=== PATIENT | female | born 1940 | race Caucasian/White ===

== ENCOUNTER 2020-05-16 18:35 | Outpatient (CLI) | payer MEDICARE, OTHER | END 2020-05-16 23:59 | disposition home or self-care (01) | LOC: LAB.S 18:35 | PROVIDERS: ATTEND Emergency Medicine | DX: L03.115 Cellulitis of right lower limb (principal) | CPT/HCPCS: 87070; 87205 ==

== ENCOUNTER 2020-05-22 17:45 | Outpatient (CLI) | payer MEDICARE, OTHER ==
--- NOTE | 2020-05-22 18:13 | XRAY Report ---
PROCEDURE: Chest 2 View X-Ray INDICATIONS: EXERTIONAL SHORTNESS OF BREATH TECHNIQUE: 2 views of the chest. COMPARISON: None. FINDINGS: Surgical changes and devices: None. Lungs and pleura: There is pulmonary edema. Small bilateral pleural effusions are present. Mediastinum: Mediastinal contours are normal. Heart size is enlarged. Bones and chest wall: No suspicious bony abnormalities. Soft tissues appear unremarkable. IMPRESSION: 1. Pulmonary edema with small pleural effusions and cardiomegaly compatible with congestive heart tajclaudio villanueva. Reviewed by: Chris Lebron MD on 05/22/2020 6:12 PM PST Approved by: Chris Lebron MD on 05/22/2020 6:12 PM [facility] Station ID: [id number]
== END 2020-05-22 17:46 | disposition home or self-care (01) ==
LOC: DI.S 17:45
PROVIDERS: ATTEND Physician Assistant Medical
DX: R06.02 Shortness of breath (principal); J81.1 Chronic pulmonary edema; J90 Pleural effusion, not elsewhere classified

== ENCOUNTER 2020-05-22 17:52 | Outpatient (CLI) | payer MEDICARE, OTHER | END 2020-05-22 23:59 | disposition home or self-care (01) | LOC: LAB.S 17:52 | PROVIDERS: ATTEND Physician Assistant Medical | DX: R06.02 Shortness of breath (principal); R05 Cough; Z20.822 Contact with and (suspected) exposure to COVID-19 ==

== ENCOUNTER 2020-05-22 19:27 | Inpatient (IN) | payer MEDICARE, OTHER ==
--- NOTE | 2020-05-22 20:47 | ED Physician Documentation ---
PD HPI DYSPNEA - Stated complaint Stated Complaint: CHF - Chief complaint Chief Complaint: Cardiac - History obtained from History obtained from: Patient - History of Present Illness Timing - onset: How many days ago (several days of increasing dyspnea with activity and lying down. Has prior leg edema that she says is a bit less than usual. Has been taking her usual medications.) Timing - onset during: Light activity Timing - duration: Days Timing - details: Gradual onset, Still present Inciting event(s): No: Out of meds Improved by: Rest, Sitting up Worsened by: Exertion, Laying flat Associated symptoms: Cough (mild). No: Fever, Wheezing Similar symptoms before: Has not had sx before Recently seen: Clinic (went to Walk In clinic today and referred to ER for CHF. Pt states has not had CHF in the past, but is on diuretic as well as recent Dx of ME/cardiac stent and prior HTN.), Admitted (She states she was in hospital end March through end Apr for CVA, and also with ME and had stent placed, and developed pneumonia. She was discharged end Apr and then moved here just beginning of May to live near her sister. Has not gotten new provider on [facility] as yet.) Review of Systems Constitutional: denies: Fever Nose: denies: Rhinorrhea / runny nose, Congestion Throat: denies: Sore throat Cardiac: denies: Chest pain / pressure Respiratory: reports: Cough. denies: Dyspnea, Hemoptysis, Wheezing GI: denies: Abdominal Pain, Nausea, Vomiting, Diarrhea, Bloody / black stool : denies: Dysuria, Frequency Musculoskeletal: reports: Extremity swelling (chronic both legs) Neurologic: reports: Generalized weakness. denies: Focal weakness, Numbness, Near syncope PD PAST MEDICAL HISTORY - Past Medical History Past Medical History: Yes Cardiovascular: Congestive heart failure, ME, Atrial fibrillation Neuro: CVA Endocrine/Autoimmune: Type 2 diabetes - Allergies Allergies/Adverse Reactions: Allergies Allergy/AdvReac Type Severity Reaction Status Date / Time amoxicillin [From Augmentin] Allergy Hives Verified 05/22/20 19:40 clavulanic acid Allergy Hives Verified 05/22/20 19:40 [From Augmentin] colesevelam Allergy Edema Verified 05/22/20 19:40 Drwyiwd-Jxr-Cnm Reductase Allergy Edema Verified 05/22/20 19:40 Inhibitor - Living Situation Living Situation: reports: Alone Living Arrangement: reports: Assisted living (move to [facility] and living at [facility] just the past 2 weeks. ) - Social History Does the pt smoke?: Yes Smoking Status: Former smoker Does the pt drink ETOH?: No Does the pt have substance abuse?: No - Immunizations Immunizations are current?: Yes PD ED PE NORMAL - Vitals Vital signs reviewed: Yes - General General: Alert and oriented X 3, No acute distress, Well developed/nourished - HEENT HEENT: Pharynx benign - Neck Neck: Supple, no meningeal sign, No adenopathy - Cardiac Cardiac: RRR, No murmur - Respiratory Respiratory: No: Clear bilaterally (crackles bottom third both lungs. No coarse sounds. ) - Abdomen Abdomen: Soft, Non tender, Non distended - Female Female : Deferred - Rectal Rectal: Deferred - Back Back: No CVA TTP - Derm Derm: Normal color, Warm and dry - Extremities Extremities: No deformity, No tenderness to palpate, Normal ROM s pain, No calf tenderness / cord, Other (1+ edema in both legs up to knees. ) Results - Vitals Vitals: Vital Signs - 24 hr 05/22/20 05/22/20 05/22/20 19:31 20:04 20:15 Temperature 36.4 C L 36.5 C Heart Rate 73 73 70 Respiratory 16 16 15 Rate Blood Pressure 121/50 L 121/50 L 137/69 H O2 Saturation 94 91 L 97 05/22/20 05/22/20 22:00 23:00 Temperature Heart Rate 72 72 Respiratory 17 21 Rate Blood Pressure 131/64 H 121/69 O2 Saturation 95 95 Oxygen O2 Source Room air - EKG (time done) 19:47 Rate: Rate (enter#) (66) Rhythm: Atrial fibrillation [place]: Normal QRS: Normal Ischemia: Normal ST segments. No: ST elevation c/w ischemia, ST depression - Labs Labs: Laboratory Tests 05/22/20 05/22/20 05/22/20 20:45 20:45 20:45 WBC 7.9 RBC 4.31 Hgb 12.2 Hct 37.4 MCV 86.8 MCH 28.3 MCHC 32.6 RDW 13.8 Plt Count 287 MPV 9.2 Neut # (Auto) 6.0 Lymph # (Auto) 0.8 L [place] # (Auto) 0.7 Eos # (Auto) 0.3 Baso # (Auto) 0.1 Absolute Nucleated RBC 0.00 Nucleated RBC % 0.0 Sodium 136 Potassium 3.7 Chloride 99 L Carbon Dioxide 24 Anion Gap 13.0 BUN 14 Creatinine 1.2 H Estimated GFR (MDRD) 43 L Glucose 115 H Calcium 9.1 Magnesium 2.0 Total Bilirubin 0.8 AST 46 H ALT 64 H Alkaline Phosphatase 71 Troponin I High Sens 8.9 B-Natriuretic Peptide Total Protein 7.4 Albumin 3.7 Globulin 3.7 Albumin/Globulin Ratio 1.0 Lipase 176 H TSH Nasal Adenovirus (PCR) Nasal B. parapertussis DNA (PCR) Nasal Coronavir 229E PCR Nasal Coronavir HKU1 PCR Nasal Coronavir NL63 PCR Nasal Coronavir OC43 PCR Nasal Enterovir/Rhinovir PCR Nasal Influenza B PCR Nasal Influenza A PCR Nasal Parainfluen 1 PCR Nasal Parainfluen 2 PCR Nasal Parainfluen 3 PCR Nasal Parainfluen 4 PCR Nasal RSV (PCR) Nasal B.pertussis DNA PCR Nasal C.pneumoniae (PCR) [place] Human Metapneumo PCR Nasal M.pneumoniae (PCR) Nasal SARS-CoV-2 (PCR) 05/22/20 05/22/20 05/22/20 20:45 20:45 21:37 WBC RBC Hgb Hct MCV MCH MCHC RDW Plt Count MPV Neut # (Auto) Lymph # (Auto) [place] # (Auto) Eos # (Auto) Baso # (Auto) Absolute Nucleated RBC Nucleated RBC % Sodium Potassium Chloride Carbon Dioxide Anion Gap BUN Creatinine Estimated GFR (MDRD) Glucose Calcium Magnesium Total Bilirubin AST ALT Alkaline Phosphatase Troponin I High Sens B-Natriuretic Peptide 295 H Total Protein Albumin Globulin Albumin/Globulin Ratio Lipase TSH 3.04 Nasal Adenovirus (PCR) NOT DETECTED Nasal B. parapertussis DNA (PCR) NOT DETECTED Nasal Coronavir 229E PCR NOT DETECTED Nasal Coronavir HKU1 PCR NOT DETECTED Nasal Coronavir NL63 PCR NOT DETECTED Nasal Coronavir OC43 PCR NOT DETECTED Nasal Enterovir/Rhinovir PCR NOT DETECTED Nasal Influenza B PCR NOT DETECTED Nasal Influenza A PCR NOT DETECTED Nasal Parainfluen 1 PCR NOT DETECTED Nasal Parainfluen 2 PCR NOT DETECTED Nasal Parainfluen 3 PCR NOT DETECTED Nasal Parainfluen 4 PCR NOT DETECTED Nasal RSV (PCR) NOT DETECTED Nasal B.pertussis DNA PCR NOT DETECTED Nasal C.pneumoniae (PCR) NOT DETECTED [place] Human Metapneumo PCR NOT DETECTED Nasal M.pneumoniae (PCR) NOT DETECTED Nasal SARS-CoV-2 (PCR) NOT DETECTED - Rads (name of study) chest xray Radiology: Prelim report reviewed (increased interstitial markings c/w pulmonary edema), See rad report PD MEDICAL DECISION MAKING - ED course Complexity details: reviewed results, re-evaluated patient (Given IV Lasix without much urine out at time yet she does take torsemide normally so we can try a different diuretic. We will give some Bumex instead.), considered differential, d/w patient ED course: She denies any prior history of CHF but records from [place] where she was hospitalized to make reference to diastolic CHF. She has recent ME with stent placement and a history of atrial fib and is on a diuretic. CHF exacerbation is not too unusual in that scenario. Recent moving may also have changed her diet and such. She will need further diuresing and further evaluation. She is not having any labored breathing at this time and her oxygenation is adequate. Blood pressures not significantly elevated so no afterload reduction was done. Departure - Departure Disposition: ED Place in Observation Clinical Impression: Dyspnea Qualifiers: Dyspnea type: dyspnea on exertion Qualified Code(s): R06.00 - Dyspnea, unspecified Congestive heart failure Qualifiers: Heart failure type: unspecified Heart failure chronicity: acute on chronic Qualified Code(s): I50.9 - Heart failure, unspecified Condition: Stable Record reviewed to determine appropriate education?: Yes Discharge Date/Time: 05/23/20 00:31
[2020-05-22 20:56] LABS: BASOPHILS # (AUTO) 0.1 10^3/uL (0.0-0.1); BASOPHILS % (AUTO) 0.6 %; EOSINOPHILS # (AUTO) 0.3 10^3/uL (0.0-0.7); EOSINOPHILS % (AUTO) 3.7 %; HGB - HEMOGLOBIN 12.2 g/dL (12.0-16.0); LYMPHOCYTES # (AUTO) 0.8 10^3/uL (1.5-3.5); LYMPHOCYTES % (AUTO) 10.4 %; MEAN CORPUSCULAR HEMOGLOBIN 28.3 pg (27.0-31.0); MEAN CORPUSCULAR HGB CONC 32.6 g/dL (32.0-36.0); MEAN CORPUSCULAR VOLUME 86.8 fL (81.0-99.0); MEAN PLATELET VOLUME 9.2 fL (7.9-10.8); MONOCYTES # (AUTO) 0.7 10^3/uL (0.0-1.0); MONOCYTES % (AUTO) 9.1 %; NEUTROPHILS % (AUTO) 75.8 %; PLT - PLATELET COUNT 287 10^3/uL (130-450); RED BLOOD COUNT 4.31 10^6/uL (4.20-5.40); RED CELL DISTRIBUTION WIDTH 13.8 % (12.0-15.0); WHITE BLOOD COUNT 7.9 x10^3/uL (4.8-10.8)
[2020-05-22] MEDS ORDERED: FUROSEMIDE 40 MG/4 ML VIAL IVP STA (21:08)
[2020-05-22 21:09] LABS: ALBUMIN 3.7 g/dL (3.2-5.5); BILIRUBIN,TOTAL 0.8 mg/dL (0.2-1.0); CALCIUM 9.1 mg/dL (8.5-10.3); CREATININE 1.2 mg/dL (0.4-1.0); TOTAL PROTEIN 7.4 g/dL (6.7-8.2)
[2020-05-22] MEDS ORDERED: BUMETANIDE 1 MG/4 ML VIAL IVP STA (22:10)
--- NOTE | 2020-05-22 22:15 | XRAY Report ---
PROCEDURE: Chest 1 View X-Ray INDICATIONS: dyspnea TECHNIQUE: One view of the chest was acquired. COMPARISON: 05/22/2020 FINDINGS: Surgical changes and devices: None. Lungs and pleura: There is increased pulmonary edema. No focal consolidation. No pleural effusions o r pneumothorax. Mediastinum: Mediastinal contours appear unchanged. Heart size is enlarged. Bones and chest wall: No suspicious bony lesions. Overlying soft tissues appear unremarkable. IMPRESSION: 1. Increased pulmonary edema compared to the recent prior study. Reviewed by: Chris Lebron MD on 05/22/2020 10:13 PM PST Approved by: Chris Lebron MD on 05/22/2020 10:13 PM [facility] Station ID: [id number]
[2020-05-22 22:39] LABS: C. PNEUMONIAE- RESP PCR PANEL NOT DETECTED
[2020-05-23] MEDS ORDERED: ONDANSETRON 4 MG/2 ML VIAL IVP PRN (00:08)
[2020-05-23] MEDS ORDERED: SODIUM CHLORIDE FLUSH 0.9% 10 ML SYRINGE IVP PRN (00:08)
[2020-05-23] MEDS ORDERED: ACETAMINOPHEN 325 MG TABLET PO PRN (00:08)
[2020-05-23] MEDS: INSULIN GLARGINE 300 UNIT/3 ML PEN SUBQ SCH ×3 (01:21→22:32)
[2020-05-23] MEDS: SODIUM CHLORIDE FLUSH 0.9% 10 ML SYRINGE IVP SCH ×3 (01:26→20:06)
[2020-05-23 06:22] LABS: CALCIUM 8.2 mg/dL (8.5-10.3); CREATININE 1.1 mg/dL (0.4-1.0); MAGNESIUM 1.9 mg/dL (1.7-2.8)
[2020-05-23] MEDS: FUROSEMIDE 40 MG/4 ML VIAL IVP SCH ×2 (06:33→14:05)
--- NOTE | 2020-05-23 07:28 | HISTORY & PHYSICAL EXAMINATION ---
DATE OF SERVICE: 05/22/2020 Physician: Kristi Michele MD PRIMARY CARE: No PCP. HISTORY OF PRESENT ILLNESS: This is an 79-year-old white female who moved from [place] to [facility] several weeks ago and has no established PCP. She has a history of diastolic heart failure, hypertension, diabetes mellitus on Insulin, atrial fib on Eliquis. She had a stroke and required hospitalization in [place] from March 2020 through May of this year and had intercurrent coronary disease evaluated and needed a coronary stent, and she also had a pneumonia. She moved from [place] to here to be closer to her sister. Over the last two days, she has noticed orthopnea, increased dyspnea on exertion and worsening of leg edema. She went to a walk-in clinic because of these complaints and was found to have a saturation of 89% on room air and was sent to the emergency room. In the ER, her chest x-ray shows pulmonary edema, and she is dyspneic and has received two doses of IV diuretics and has had no urine output of significance yet, is still dyspneic. She is being placed in Observation status for management of [id number]-zh-ycqmdnu diastolic heart failure. PAST MEDICAL HISTORY 1. Diastolic heart failure. 2. Hypertension. 3. Diabetes. 4. Stroke. 5. Chronic atrial fibrillation, on Eliquis. ALLERGIES 1. AMOXICILLIN. 2. CLAVULANIC ACID. 3. COLESEVELAM. 4. STATINS. MEDICATIONS 1. Eliquis. 2. Torsemide 3. Diltiazem. 4. Insulin. 5. Avapro. 6. Baby aspirin daily. 7. Plavix. FAMILY HISTORY: Noncontributory. SOCIAL HISTORY: As described in paragraph 1 about moving here from [place]. She is not a smoker, does not have alcohol abuse history or illicit drug use history. REVIEW OF SYSTEMS: There has been no cough, fever, GI complaints, palpitations, or syncope. A comprehensive review of systems was performed and the pertinent positives are listed, the rest are negative. PHYSICAL EXAMINATION GENERAL: The patient is morbidly obese with large, pendulous breasts, sitting in bed, with head of bed elevated, she has mild respiratory distress with speaking. VITAL SIGNS: Blood pressure 131/64, heart rate 72 in atrial fibrillation, room air saturation 91%, and then increased to 95% on supplemental oxygen. She is afebrile. HEENT: Unremarkable. NECK: No JVD but obese neck. CHEST: Possibly fine crackles at the bases. HEART: Irregular. No murmurs are audible. ABDOMEN: Soft, obese, nontender. EXTREMITIES: 1+ pedal edema with venous stasis changes. No clubbing or cyanosis. NEUROLOGIC: Grossly intact. LABORATORY DATA: Normal electrolytes. BUN is 14, creatinine 1.2. There are no old labs for comparison. Magnesium 2.0. AST 46, ALT elevated at 64. Troponin- hs is normal at 8.9. BNP mildly up at 295. Lipase very high at 176. TSH normal at 3.04. CBC normal. BioFire negative for COVID. IMAGING: Chest x-ray: Pulmonary edema. EKG: Atrial fibrillation, rate of 66, QS waves are present in leads V1-V3, and there are inferolateral T-wave abnormalities in leads III and aVL. There is no old EKG available for comparison. IMPRESSION/DIAGNOSES: 1. Yktql-hu-cjiiaot diastolic heart failure. 2. Chronic kidney injury. The records from her Mar 2020-May 2020 hospitalization show a baseline creat of 1.5. 3. Elevated liver function tests, probable liver congestion. 4. Elevated lipase, which may be a phase reactant; however, with his very high level, there is concern of pancreatic inflammation. 5. Chronic atrial fibrillation. 6. Diabetes mellitus, on Insulin. 7. History of coronary artery disease, with stenting just done approximately 4- 6 weeks ago. She is on aspirin, Plavix plus Eliquis. 8. Hypertension. 9. PVD. Her records from her Mar 2020-May 2020 hospitalization describe that has carotid stenoses. 10. Aortic stenosis. This is also from records. Her heart sounds are so distant, due to large breasts, that no murmur is heard. 11. History of CVA. She describes slight right foot weakness and right 4th and 5th finger numbness are still present. PLAN: Place the patient in Observation status on telemetry. Start oxygen as needed. Continue with her medications for rate control and anticoagulation. Start IV b.i.d. Lasix, follow I's and O's, daily weights, electrolytes and magnesium. Start a diabetic diet and (a slightly lower dose of) insulin long- acting and sliding scale for correction. Check her A1c. Continue with her aspirin and Plavix for her coronary disease with recent stenting history and her meds for blood pressure control. Cycle troponins. Obtain an Echo to establish LV and RV contractility and PA pressure. If there has been no urine output we will check for urinary retention and either order straight catheterization or Sagastume placement. DEEP VENOUS THROMBOSIS PROPHYLAXIS: SCDs. CODE STATUS: FULL CODE. ATTESTATION: Patient is expected to be discharged or transferred to another facility within 96 hours: Yes. TD: 05/23/2020 00:03 MTDRo
[2020-05-23] MEDS: INSULIN ASPART 300 UNIT/3 ML PEN SUBQ SCH ×4 (09:28→22:32)
[2020-05-23] MEDS: CLOPIDOGREL 75 MG TABLET PO SCH (09:30)
[2020-05-23] MEDS: ASPIRIN EC 81 MG TABLET PO SCH (09:30)
[2020-05-23] MEDS: APIXABAN 5 MG TABLET PO SCH ×2 (09:30→22:28)
[2020-05-23] MEDS: METOPROLOL TARTRATE 25 MG TABLET PO SCH ×2 (09:30→22:28)
[2020-05-23] MEDS: amLODIPine 5 MG TABLET PO SCH (09:30)
[2020-05-23] MEDS: FAMOTIDINE 20 MG TABLET PO SCH ×2 (09:30→22:28)
--- NOTE | 2020-05-23 13:14 | PROVIDER PROGRESS NOTE ---
Subjective - Prog Note Date Prog Note Date: 05/23/20 - Subjective Subjective: She feels improved but not back to her baseline. Still has some dyspnea but this is better. Denies any worsening lower extremity edema. Denies chest pain. Current Medications - Current Medications Current Medications: Active Medications Acetaminophen (Acetaminophen 325 Mg Tablet) 650 mg PO Q4HR PRN PRN Reason: Pain 1 to 4 Amlodipine Besylate (Amlodipine 5 Mg Tablet) 5 mg PO DAILY [facility] Last Admin: 05/23/20 09:30 Dose: 5 mg Documented by: Apixaban (Apixaban 5 Mg Tablet) 5 mg PO BID [facility] Last Admin: 05/23/20 09:30 Dose: 5 mg Documented by: Aspirin (Aspirin Ec 81 Mg Tablet) 81 mg PO DAILY [facility] Last Admin: 05/23/20 09:30 Dose: 81 mg Documented by: Clopidogrel Bisulfate (Clopidogrel 75 Mg Tablet) 75 mg PO DAILY [facility] Last Admin: 05/23/20 09:30 Dose: 75 mg Documented by: Famotidine (Famotidine 20 Mg Tablet) 20 mg PO BID [facility] Last Admin: 05/23/20 09:30 Dose: 20 mg Documented by: Furosemide (Furosemide 40 Mg/4 Ml Vial) 40 mg IVP BIDDIURETIC [facility] Last Admin: 05/23/20 14:05 Dose: 40 mg Documented by: Insulin Aspart (Insulin Aspart 300 Unit/3 Ml Pen) 1 - 5 unit SUBQ 0800,1200 ,1700,2100 [facility]; Protocol Last Admin: 05/23/20 12:23 Dose: 3 unit Documented by: Insulin Glargine (Insulin Glargine 300 Unit/3 Ml Pen) 5 unit SUBQ BID [facility] Last Admin: 05/23/20 09:28 Dose: 5 unit Documented by: Metoprolol Tartrate (Metoprolol Tartrate 25 Mg Tablet) 12.5 mg PO BID [facility] Last Admin: 05/23/20 09:30 Dose: 12.5 mg Documented by: Ondansetron HCl (Ondansetron 4 Mg/2 Ml Vial) 4 mg IVP Q6HR PRN PRN Reason: Nausea / Vomiting Sodium Chloride (Sodium Chloride Flush 0.9% 10 Ml Syringe) 10 ml IVP PRN PRN PRN Reason: NEEDED PER PROVIDER ORDERS Sodium Chloride (Sodium Chloride Flush 0.9% 10 Ml Syringe) 10 ml IVP 0100,0900,1700 [facility] Last Admin: 05/23/20 09:31 Dose: 10 ml Documented by: Objective - Vital Signs/Intake & Output Reviewed Vital Signs: Yes Vital Signs: Vital Signs x48h Temp Pulse Resp BP BP Pulse Ox 05/23/20 12:17 36.9 C 75 18 144/74 H 95 05/23/20 09:30 146/65 H 05/23/20 08:00 37.1 C 84 20 141/65 H 93 Intake & Output: Intake & Output 05/20/20 05/21/20 05/22/20 05/23/20 23:59 23:59 23:59 23:59 Intake Total 600 Output Total 650 1850 Balance -650 -1250 - Objective General Appearance: positive: No acute distress, Alert Eyes Bilateral: positive: Normal inspection, Conjunctivae nml ENT: positive: ENT inspection nml Neck: positive: Nml inspection Respiratory: positive: No respiratory distress, Other (Diminished in bases.). negative: Wheezes, Rales Cardiovascular: positive: Irregularly irregular, Systolic murmur. negative: Tachycardia Abdomen: positive: Non-tender, No distention. negative: Tenderness Skin: positive: Warm, Dry Extremities: positive: Pedal edema (Trace edema in bilateral lower extremities.) Neurologic/Psychiatric: negative: Disoriented to person, Disoriented to place - Lab Results Fish Bones: 05/22/20 20:45 05/23/20 06:05 Other Labs: Lab Results x24hrs 05/23/20 05/23/20 05/23/20 Range/Units 12:13 08:06 06:05 WBC (4.8-10.8) x10^3/uL RBC (4.20-5.40) 10^6/uL Hgb (12.0-16.0) g/dL Hct (37.0-47.0) % MCV (81.0-99.0) fL MCH (27.0-31.0) pg MCHC (32.0-36.0) g/dL RDW (12.0-15.0) % Plt Count (130-450) 10^3/uL MPV (7.9-10.8) fL Neut # (Auto) (1.5-6.6) 10^3/uL Lymph # (Auto) (1.5-3.5) 10^3/uL [place] # (Auto) (0.0-1.0) 10^3/uL Eos # (Auto) (0.0-0.7) 10^3/uL Baso # (Auto) (0.0-0.1) 10^3/uL Absolute Nucleated RBC x10^3/uL Nucleated RBC % /100WBC Sodium (135-145) mmol/L Potassium (3.5-5.0) mmol/L Chloride (101-111) mmol/L Carbon Dioxide (21-32) mmol/L Anion Gap (6-13) BUN (6-20) mg/dL Creatinine (0.4-1.0) mg/dL Estimated GFR (MDRD) (>89) Glucose (70-100) mg/dL POC Whole Bld Glucose 272 H 157 H (70 - 100) mg/dL Calcium (8.5-10.3) mg/dL Magnesium (1.7-2.8) mg/dL Total Bilirubin (0.2-1.0) mg/dL AST (10-42) IU/L ALT (10-60) IU/L Alkaline Phosphatase (42-121) IU/L Troponin I High Sens (2.3-14.8) ng/L B-Natriuretic Peptide 248 H (5-100) pg/mL Total Protein (6.7-8.2) g/dL Albumin (3.2-5.5) g/dL Globulin (2.1-4.2) g/dL Albumin/Globulin Ratio (1.0-2.2) Lipase (22-51) U/L TSH (0.34-5.60) uIU/mL Nasal Adenovirus (PCR) Nasal B. parapertussis DNA (PCR) Nasal Coronavir 229E PCR Nasal Coronavir HKU1 PCR Nasal Coronavir NL63 PCR Nasal Coronavir OC43 PCR Nasal Enterovir/Rhinovir PCR Nasal Influenza B PCR Nasal Influenza A PCR Nasal Parainfluen 1 PCR Nasal Parainfluen 2 PCR Nasal Parainfluen 3 PCR Nasal Parainfluen 4 PCR Nasal RSV (PCR) Nasal B.pertussis DNA PCR Nasal C.pneumoniae (PCR) [place] Human Metapneumo PCR Nasal M.pneumoniae (PCR) Nasal SARS-CoV-2 (PCR) 05/23/20 05/22/2021 Range/Units 06:05 21:37 20:45 WBC (4.8-10.8) x10^3/uL RBC (4.20-5.40) 10^6/uL Hgb (12.0-16.0) g/dL Hct (37.0-47.0) % MCV (81.0-99.0) fL MCH (27.0-31.0) pg MCHC (32.0-36.0) g/dL RDW (12.0-15.0) % Plt Count (130-450) 10^3/uL MPV (7.9-10.8) fL Neut # (Auto) (1.5-6.6) 10^3/uL Lymph # (Auto) (1.5-3.5) 10^3/uL [place] # (Auto) (0.0-1.0) 10^3/uL Eos # (Auto) (0.0-0.7) 10^3/uL Baso # (Auto) (0.0-0.1) 10^3/uL Absolute Nucleated RBC x10^3/uL Nucleated RBC % /100WBC Sodium 134 L (135-145) mmol/L Potassium 3.6 (3.5-5.0) mmol/L Chloride 100 L (101-111) mmol/L Carbon Dioxide 22 (21-32) mmol/L Anion Gap 12.0 (6-13) BUN 13 (6-20) mg/dL Creatinine 1.1 H (0.4-1.0) mg/dL Estimated GFR (MDRD) 48 L (>89) Glucose 159 H (70-100) mg/dL POC Whole Bld Glucose (70 - 100) mg/dL Calcium 8.2 L (8.5-10.3) mg/dL Magnesium 1.9 (1.7-2.8) mg/dL Total Bilirubin (0.2-1.0) mg/dL AST (10-42) IU/L ALT (10-60) IU/L Alkaline Phosphatase (42-121) IU/L Troponin I High Sens (2.3-14.8) ng/L B-Natriuretic Peptide (5-100) pg/mL Total Protein (6.7-8.2) g/dL Albumin (3.2-5.5) g/dL Globulin (2.1-4.2) g/dL Albumin/Globulin Ratio (1.0-2.2) Lipase (22-51) U/L TSH 3.04 (0.34-5.60) uIU/mL Nasal Adenovirus (PCR) NOT DETECTED Nasal B. parapertussis DNA (PCR) NOT DETECTED Nasal Coronavir 229E PCR NOT DETECTED Nasal Coronavir HKU1 PCR NOT DETECTED Nasal Coronavir NL63 PCR NOT DETECTED Nasal Coronavir OC43 PCR NOT DETECTED Nasal Enterovir/Rhinovir PCR NOT DETECTED Nasal Influenza B PCR NOT DETECTED Nasal Influenza A PCR NOT DETECTED Nasal Parainfluen 1 PCR NOT DETECTED Nasal Parainfluen 2 PCR NOT DETECTED Nasal Parainfluen 3 PCR NOT DETECTED Nasal Parainfluen 4 PCR NOT DETECTED Nasal RSV (PCR) NOT DETECTED Nasal B.pertussis DNA PCR NOT DETECTED Nasal C.pneumoniae (PCR) NOT DETECTED [place] Human Metapneumo PCR NOT DETECTED Nasal M.pneumoniae (PCR) NOT DETECTED Nasal SARS-CoV-2 (PCR) NOT DETECTED 05/22/20 05/22/20 05/22/20 Range/Units 20:45 20:45 20:45 WBC (4.8-10.8) x10^3/uL RBC (4.20-5.40) 10^6/uL Hgb (12.0-16.0) g/dL Hct (37.0-47.0) % MCV (81.0-99.0) fL MCH (27.0-31.0) pg MCHC (32.0-36.0) g/dL RDW (12.0-15.0) % Plt Count (130-450) 10^3/uL MPV (7.9-10.8) fL Neut # (Auto) (1.5-6.6) 10^3/uL Lymph # (Auto) (1.5-3.5) 10^3/uL [place] # (Auto) (0.0-1.0) 10^3/uL Eos # (Auto) (0.0-0.7) 10^3/uL Baso # (Auto) (0.0-0.1) 10^3/uL Absolute Nucleated RBC x10^3/uL Nucleated RBC % /100WBC Sodium 136 (135-145) mmol/L Potassium 3.7 (3.5-5.0) mmol/L Chloride 99 L (101-111) mmol/L Carbon Dioxide 24 (21-32) mmol/L Anion Gap 13.0 (6-13) BUN 14 (6-20) mg/dL Creatinine 1.2 H (0.4-1.0) mg/dL Estimated GFR (MDRD) 43 L (>89) Glucose 115 H (70-100) mg/dL POC Whole Bld Glucose (70 - 100) mg/dL Calcium 9.1 (8.5-10.3) mg/dL Magnesium 2.0 (1.7-2.8) mg/dL Total Bilirubin 0.8 (0.2-1.0) mg/dL AST 46 H (10-42) IU/L ALT 64 H (10-60) IU/L Alkaline Phosphatase 71 (42-121) IU/L Troponin I High Sens 8.9 (2.3-14.8) ng/L B-Natriuretic Peptide 295 H (5-100) pg/mL Total Protein 7.4 (6.7-8.2) g/dL Albumin 3.7 (3.2-5.5) g/dL Globulin 3.7 (2.1-4.2) g/dL Albumin/Globulin Ratio 1.0 (1.0-2.2) Lipase 176 H (22-51) U/L TSH (0.34-5.60) uIU/mL Nasal Adenovirus (PCR) Nasal B. parapertussis DNA (PCR) Nasal Coronavir 229E PCR Nasal Coronavir HKU1 PCR Nasal Coronavir NL63 PCR Nasal Coronavir OC43 PCR Nasal Enterovir/Rhinovir PCR Nasal Influenza B PCR Nasal Influenza A PCR Nasal Parainfluen 1 PCR Nasal Parainfluen 2 PCR Nasal Parainfluen 3 PCR Nasal Parainfluen 4 PCR Nasal RSV (PCR) Nasal B.pertussis DNA PCR Nasal C.pneumoniae (PCR) [place] Human Metapneumo PCR Nasal M.pneumoniae (PCR) Nasal SARS-CoV-2 (PCR) 05/22/20 Range/Units 20:45 WBC 7.9 (4.8-10.8) x10^3/uL RBC 4.31 (4.20-5.40) 10^6/uL Hgb 12.2 (12.0-16.0) g/dL Hct 37.4 (37.0-47.0) % MCV 86.8 (81.0-99.0) fL MCH 28.3 (27.0-31.0) pg MCHC 32.6 (32.0-36.0) g/dL RDW 13.8 (12.0-15.0) % Plt Count 287 (130-450) 10^3/uL MPV 9.2 (7.9-10.8) fL Neut # (Auto) 6.0 (1.5-6.6) 10^3/uL Lymph # (Auto) 0.8 L (1.5-3.5) 10^3/uL [place] # (Auto) 0.7 (0.0-1.0) 10^3/uL Eos # (Auto) 0.3 (0.0-0.7) 10^3/uL Baso # (Auto) 0.1 (0.0-0.1) 10^3/uL Absolute Nucleated RBC 0.00 x10^3/uL Nucleated RBC % 0.0 /100WBC Sodium (135-145) mmol/L Potassium (3.5-5.0) mmol/L Chloride (101-111) mmol/L Carbon Dioxide (21-32) mmol/L Anion Gap (6-13) BUN (6-20) mg/dL Creatinine (0.4-1.0) mg/dL Estimated GFR (MDRD) (>89) Glucose (70-100) mg/dL POC Whole Bld Glucose (70 - 100) mg/dL Calcium (8.5-10.3) mg/dL Magnesium (1.7-2.8) mg/dL Total Bilirubin (0.2-1.0) mg/dL AST (10-42) IU/L ALT (10-60) IU/L Alkaline Phosphatase (42-121) IU/L Troponin I High Sens (2.3-14.8) ng/L B-Natriuretic Peptide (5-100) pg/mL Total Protein (6.7-8.2) g/dL Albumin (3.2-5.5) g/dL Globulin (2.1-4.2) g/dL Albumin/Globulin Ratio (1.0-2.2) Lipase (22-51) U/L TSH (0.34-5.60) uIU/mL Nasal Adenovirus (PCR) Nasal B. parapertussis DNA (PCR) Nasal Coronavir 229E PCR Nasal Coronavir HKU1 PCR Nasal Coronavir NL63 PCR Nasal Coronavir OC43 PCR Nasal Enterovir/Rhinovir PCR Nasal Influenza B PCR Nasal Influenza A PCR Nasal Parainfluen 1 PCR Nasal Parainfluen 2 PCR Nasal Parainfluen 3 PCR Nasal Parainfluen 4 PCR Nasal RSV (PCR) Nasal B.pertussis DNA PCR Nasal C.pneumoniae (PCR) [place] Human Metapneumo PCR Nasal M.pneumoniae (PCR) Nasal SARS-CoV-2 (PCR) ABX Reporting Has patient been on IV antibiotics over the past 48 hours?: No Assessment/Plan - Problem List (1) Acute on chronic diastolic heart failure Impression: This is improved. She still has some lower extremity edema but she is sa turating well on room air and feels improved. BNP is slightly decreased. We will continue with IV diuresis for 1 more day and transition to oral diuretics tomorrow. Continue with low-sodium diet. She likely be able to be discharged home tomorrow on oral diuretics. We will follow up the echocardiogram that was obtained today. Daily weights. (2) Chronic a-fib Impression: She is rate controlled. We will continue Eliquis and metoprolol. (3) Insulin dependent diabetes mellitus Impression: Her blood glucose is stable in the 160's. Her A1c was 5.5%. Continue carb controlled diet and current insulin regimen. (4) History of CVA with residual deficit Impression: She has history of stroke with residual right-sided deficits. She is on triple therapy with Eliquis, Plavix, aspirin. These will be continued. (5) Presence of stent in coronary artery in patient with coronary artery disease Impression: She has recent stenting back in April 2020. She is on triple therapy with Eliquis, aspirin, Plavix, statin which is continued. She will be following up with cardiology on outpatient basis. (6) Moderate aortic stenosis Impression: This was evident on her prior echocardiogram. She does have a murmur on exam. We will assess this stenosis on their repeat echocardiogram today. She will need outpatient follow-up with cardiology. (7) Carotid artery disease Impression: She has known right carotid artery disease. She is on Plavix, aspirin, statin. It was recommended by neurology during her recent hospitalization to follow-up with vascular on outpatient basis. She will be setting up an appointment with them. Qualifiers: Laterality: right
[2020-05-23 14:09] LABS: HEMOGLOBIN A1c% 7.5 % (4.27-6.07)
[2020-05-23] MEDS ORDERED: INSULIN ASPART 300 UNIT/3 ML PEN SUBQ SCH (17:00)
[2020-05-24] MEDS: SODIUM CHLORIDE FLUSH 0.9% 10 ML SYRINGE IVP SCH ×2 (00:18→08:58)
[2020-05-24 05:34] LABS: BASOPHILS # (AUTO) 0.1 10^3/uL (0.0-0.1); BASOPHILS % (AUTO) 0.8 %; EOSINOPHILS # (AUTO) 0.2 10^3/uL (0.0-0.7); EOSINOPHILS % (AUTO) 3.3 %; HGB - HEMOGLOBIN 10.9 g/dL (12.0-16.0); LYMPHOCYTES % (AUTO) 15.7 %; MEAN CORPUSCULAR HEMOGLOBIN 28.3 pg (27.0-31.0); MEAN CORPUSCULAR HGB CONC 32.3 g/dL (32.0-36.0); MEAN CORPUSCULAR VOLUME 87.5 fL (81.0-99.0); MEAN PLATELET VOLUME 9.8 fL (7.9-10.8); MONOCYTES # (AUTO) 0.6 10^3/uL (0.0-1.0); MONOCYTES % (AUTO) 9.8 %; NEUTROPHILS # (AUTO) 4.4 10^3/uL (1.5-6.6); NEUTROPHILS % (AUTO) 69.9 %; PLT - PLATELET COUNT 263 10^3/uL (130-450); RED BLOOD COUNT 3.85 10^6/uL (4.20-5.40); RED CELL DISTRIBUTION WIDTH 13.7 % (12.0-15.0); WHITE BLOOD COUNT 6.3 x10^3/uL (4.8-10.8)
[2020-05-24 05:41] LABS: CALCIUM 8.7 mg/dL (8.5-10.3); CREATININE 1.1 mg/dL (0.4-1.0)
[2020-05-24] MEDS: FUROSEMIDE 40 MG/4 ML VIAL IVP SCH (05:58)
[2020-05-24] MEDS: INSULIN ASPART 300 UNIT/3 ML PEN SUBQ SCH ×2 (08:55→11:52)
[2020-05-24] MEDS: APIXABAN 5 MG TABLET PO SCH (08:56)
[2020-05-24] MEDS: METOPROLOL TARTRATE 25 MG TABLET PO SCH (08:56)
[2020-05-24] MEDS: amLODIPine 5 MG TABLET PO SCH (08:56)
[2020-05-24] MEDS: FAMOTIDINE 20 MG TABLET PO SCH (08:56)
[2020-05-24] MEDS: CLOPIDOGREL 75 MG TABLET PO SCH (08:57)
[2020-05-24] MEDS: ASPIRIN EC 81 MG TABLET PO SCH (08:58)
--- NOTE | 2020-05-24 09:01 | Discharge Plan ---
Discharge Plan for SNF / [facility] - Discharge Plan And Transition Orders Problem Reviewed?: Yes Disposition: 03 SNF DC/Xfer Condition: Stable Allergies and Adverse Reactions: Allergies Allergy/AdvReac Type Severity Reaction Status Date / Time amoxicillin [From Augmentin] Allergy Hives Verified 05/22/20 19:40 clavulanic acid Allergy Hives Verified 05/22/20 19:40 [From Augmentin] colesevelam Allergy Edema Verified 05/22/20 19:40 Jonlrjo-Etm-Omo Reductase Allergy Edema Verified 05/22/20 19:40 Inhibitor Health Concerns: The patient was admitted for acute on chronic diastolic heart failure. Her BNP was only mildly elevated but her chest x-ray was consistent with pulmonary vascular congestion. He was diuresed with IV Lasix 40 mg twice daily with improvement in her respiratory status. She was never hypoxic and did not require supplemental oxygen. An echocardiogram was obtained which showed an ejection fraction of 60 to 65% without any obvious regional wall motion abnormalities. She is now stable for discharge back to [facility]. Plan of Treatment: Her blood pressure has been stable during this hospitalization and so we will discontinue her hydralazine but continue with amlodipine at a lower dose of 5 mg daily. She is on 20 mg of torsemide daily which will be continued. We will add 10 mg of torsemide in the afternoon. Continue her current dose of Lantus and glipizide as well as Lopressor. She has been on Eliquis, aspirin, clopidogrel. We will continue these on discharge but recommend that she follow-up with a six sigma black belt engineer as the aspirin can likely be discontinued but will defer to cardiology. The patient should have her weight checked daily and her primary care provider should be contacted if her weight increases by 1.5 kg. - SNF / [facility] Transition Orders Admit to (Facility): [facility] Discharge Diagnosis: Acute on chronic diastolic heart failure Chronic A. fib Insulin-dependent diabetes mellitus History of CVA with residual deficit Coronary artery disease with stent in place Moderate aortic stenosis Carotid artery disease, right Medicare Certification Statement: I certify that [facility] care is medically necessary on a continuing basis for any of the conditions for which she/he is receiving care during hospitalization. Notify PCP of admission and forward orders to primary provider for signature. Weight on admission and: Daily, Weekly Call PCP immediately if weight increases by: 1.5 kg Other Notification Orders: Call PCP immediately if patient develops dyspnea, chest pain/tightness or edema. Additional Bowel Program Orders: If no BM after 2 days, nurse may give M.O.M. 30ml PO PRN and/or ducolax Supp 1 IL and/or MIGUELITO 250mg P.O., and/or senna 1-2 tabs PO. On day 3 nurse may give repeat above order until residents constipation is resolved. Medication Orders: PLEASE REFER TO THE DISCHARGE MEDICATION LIST. Insulin Orders?: Yes - Medications New Prescriptions: Glipizide 5 mg PO BID #60 tablet Insulin Lispro 100 unit SQ ACHS #1 vial Insulin Glargine [Lantus Solostar] 14 unit SQ HS #1 pen amLODIPine [Norvasc] 5 mg PO DAILY #30 tablet Torsemide 20 mg PO DAILY #30 tablet Torsemide 10 mg PO 1400 #30 tablet Ezetimibe [Zetia] 10 mg PO QD #30 tablet - Diet Type: No added sugar Texture: Regular Liquids: Thin Follow Up: She will need to follow-up with her primary care provider in 1 week.
[2020-05-24 11:37] LABS: C. PNEUMONIAE- RESP PCR PANEL NOT DETECTED
--- NOTE | 2020-05-24 13:15 | DISCHARGE SUMMARY ---
Discharge Summary Admit Date: 05/22/20 Discharge Date: 05/24/20 Discharging Provider: Pasha Delgado Code Status: Attempt Resuscitation Condition at Discharge: Stable Discharge Disposition: SNF DC/Xfer Discharge Facility Name: [facility] - DIAGNOSES Admission Diagnoses: Acute on chronic diastolic heart failure Chronic kidney injury Elevated LFTs Elevated lipase Chronic atrial fibrillation Diabetes mellitus, on insulin History of coronary artery disease Hypertension Peripheral vascular disease Aortic stenosis History of CVA Discharge Diagnoses with Status of Each Condition: Acute on chronic diastolic heart failure - resolved. Chronic A. fib - stable. Insulin-dependent diabetes mellitus - stable. History of CVA with residual deficit - stable. Coronary artery disease with stent in place - stable. Moderate aortic stenosis - stable. Carotid artery disease, right - stable. - HPI History of Present Illness: Please refer to H&P of Dr. Michele. - HOSPITAL COURSE Hospital Course: The patient was admitted for acute on chronic diastolic heart failure. Her BNP was only mildly elevated but her chest x-ray was consistent with pulmonary vascular congestion. He was diuresed with IV Lasix 40 mg twice daily with improvement in her respiratory status. She was never hypoxic and did not require supplemental oxygen. An echocardiogram was obtained which showed an ejection fraction of 60 to 65% without any obvious regional wall motion abnormalities. She is now stable for discharge back to [facility]. She was discharged on her 20 mg of torsemide daily but we did add 10 mg in the afternoon. We discontinued her hydralazine on discharge as her blood pressure has been stable on just amlodipine. We did decrease the dose of amlodipine to 5 mg from 10 mg daily. - ALLERGIES Allergies/Adverse Reactions: Allergies Allergy/AdvReac Type Severity Reaction Status Date / Time amoxicillin [From Augmentin] Allergy Hives Verified 05/22/20 19:40 clavulanic acid Allergy Hives Verified 05/22/20 19:40 [From Augmentin] colesevelam Allergy Edema Verified 05/22/20 19:40 Finkuuq-Wme-Ghj Reductase Allergy Edema Verified 05/22/20 19:40 Inhibitor - MEDICATIONS Home Medications: Ambulatory Orders Medication Instructions Recorded Confirmed Apixaban [Eliquis] 5 mg PO BID tablet 05/24/20 Aspirin EC [Ecotrin] 81 mg PO DAILY tablet 05/24/20 Clopidogrel [Plavix] 75 mg PO DAILY tablet 05/24/20 Ezetimibe [Zetia] 10 mg PO QD #30 tablet 05/24/20 Glipizide 5 mg PO BID #60 tablet 05/24/20 Insulin Glargine [Lantus Solostar] 14 unit SQ HS #1 pen 05/24/20 Insulin Lispro 100 unit SQ ACHS #1 vial 05/24/20 Metoprolol Tartrate [Lopressor] 12.5 mg PO BID tablet 05/24/20 Torsemide 10 mg PO 1400 #30 tablet 05/24/20 Torsemide 20 mg PO DAILY #30 tablet 05/24/20 amLODIPine [Norvasc] 5 mg PO DAILY #30 tablet 05/24/20 - PHYSICAL EXAM AT DISCHARGE General Appearance: positive: No acute distress, Alert Eyes Bilateral: positive: Normal inspection, Conjunctivae nml ENT: positive: ENT inspection nml Neck: positive: Nml inspection Respiratory: positive: No respiratory distress, Other (Diminished breath sounds bilaterally.). negative: Wheezes, Rales Cardiovascular: positive: Irregularly irregular. negative: Tachycardia, Systolic murmur Abdomen: positive: Non-tender, No distention. negative: Tenderness Skin: positive: Warm, Dry Extremities: positive: Full ROM, Pedal edema (Trace edema in bilateral lower extremities.) Neurologic/Psychiatric: positive: Oriented x3. negative: Disoriented to person, Disoriented to place Physical Exam Other/Comments: Vital Signs - 24 hr 05/23/20 05/23/20 05/24/20 20:30 22:28 00:00 Temperature 36.8 C 36.9 C Heart Rate [ 64 68 Brachial] Respiratory 18 18 Rate Blood Pressure 130/56 L Blood Pressure 128/54 L 118/56 L [Left Brachial artery] O2 Saturation 94 95 05/24/20 05/24/20 08:00 16:00 Temperature 36.6 C 36.2 C L Heart Rate [ 66 66 Brachial] Respiratory 20 18 Rate Blood Pressure Blood Pressure 139/65 H 154/67 H [Left Brachial artery] O2 Saturation 95 97 Oxygen O2 Source Room air - LABS Result Diagrams: 05/24/20 03:58 05/24/20 03:58 Other Lab Results: Laboratory Results - last 24 hr 05/24/20 05/24/20 05/24/20 03:58 03:58 10:42 WBC 6.3 RBC 3.85 L Hgb 10.9 L Hct 33.7 L MCV 87.5 MCH 28.3 MCHC 32.3 RDW 13.7 Plt Count 263 MPV 9.8 Neut # (Auto) 4.4 Lymph # (Auto) 1.0 L [place] # (Auto) 0.6 Eos # (Auto) 0.2 Baso # (Auto) 0.1 Absolute Nucleated RBC 0.00 Nucleated RBC % 0.0 Sodium 133 L Potassium 3.5 Chloride 100 L Carbon Dioxide 24 Anion Gap 9.0 BUN 20 Creatinine 1.1 H Estimated GFR (MDRD) 48 L Glucose 178 H Calcium 8.7 Nasal Adenovirus (PCR) NOT DETECTED Nasal B. parapertussis DNA (PCR) NOT DETECTED Nasal Coronavir 229E PCR NOT DETECTED Nasal Coronavir HKU1 PCR NOT DETECTED Nasal Coronavir NL63 PCR NOT DETECTED Nasal Coronavir OC43 PCR NOT DETECTED Nasal Enterovir/Rhinovir PCR NOT DETECTED Nasal Influenza B PCR NOT DETECTED Nasal Influenza A PCR NOT DETECTED Nasal Parainfluen 1 PCR NOT DETECTED Nasal Parainfluen 2 PCR NOT DETECTED Nasal Parainfluen 3 PCR NOT DETECTED Nasal Parainfluen 4 PCR NOT DETECTED Nasal RSV (PCR) NOT DETECTED Nasal B.pertussis DNA PCR NOT DETECTED Nasal C.pneumoniae (PCR) NOT DETECTED [place] Human Metapneumo PCR NOT DETECTED Nasal M.pneumoniae (PCR) NOT DETECTED Nasal SARS-CoV-2 (PCR) NOT DETECTED - DIAGNOSTIC IMAGING Diagnostic Imaging Results: Final report reviewed - FOLLOW UP Follow Up: She will follow up with her primary care provider in 1 week. She will need outpatient cardiology follow-up and vascular surgery follow-up given her history of coronary artery disease and right carotid artery disease. - TIME SPENT Time Spent in Discharge (Minutes): 35
[2020-05-24 16:21] VITALS: BP 154/67
[2020-05-24] MEDS ORDERED: INSULIN GLARGINE 300 UNIT/3 ML PEN SUBQ SCH (21:00)
== END 2020-05-24 16:18 | disposition home or self-care (01) | DRG 291 ==
LOC: ED 19:27 → OBS 23:14 → OBSVTOIN 05-23 13:12 → MS2 05-23 15:57
PROVIDERS: ADMIT Internal Medicine; ATTEND Internal Medicine
DX: I13.0 Hypertensive heart and chronic kidney disease with heart failure and stage 1 through stage 4 chronic kidney disease, or unspecified chronic kidney disease (principal); I50.33 Acute on chronic diastolic (congestive) heart failure; I48.20 Chronic atrial fibrillation, unspecified; I69.951 Hemiplegia and hemiparesis following unspecified cerebrovascular disease affecting right dominant side; E11.22 Type 2 diabetes mellitus with diabetic chronic kidney disease; N18.9 Chronic kidney disease, unspecified; I65.21 Occlusion and stenosis of right carotid artery; I65.23 Occlusion and stenosis of bilateral carotid arteries; I35.0 Nonrheumatic aortic (valve) stenosis; E66.01 Morbid (severe) obesity due to excess calories; Z68.38 Body mass index [BMI] 38.0-38.9, adult; K76.1 Chronic passive congestion of liver; Z79.01 Long term (current) use of anticoagulants; Z79.4 Long term (current) use of insulin; Z79.82 Long term (current) use of aspirin; Z79.02 Long term (current) use of antithrombotics/antiplatelets; Z79.899 Other long term (current) drug therapy; Z95.5 Presence of coronary angioplasty implant and graft; Z87.891 Personal history of nicotine dependence
CPT/HCPCS: 36415; 71045; 80048; 80053; 83036; 83690; 83735; 83880; 84443; 84484; 85025; 87631; 93005; 93306; 96374; 96375; 96376; 99284; 99285; A9270; G0378; J1815; 0202U

== ENCOUNTER 2020-08-24 06:30 | Day surgery (SDC) | payer MEDICARE, OTHER ==
[~2020-08-24 06:30] MED LIST: KETOROLAC 0.45% OPHTH DROPS ONE; PROPARACAINE 0.5% OPHTH DROPS 15 ML ONE
[2020-08-24] MEDS ORDERED: EPINEPHrine 1 MG/ML AMP ONE (07:01)
[2020-08-24] MEDS ORDERED: TIMOLOL 0.5% OPHTH DROPS ONE (07:01)
[2020-08-24] MEDS ORDERED: TRIAMCIN/MOXIFLOX OPHTHALMIC 0.6 ML VIAL IO ONE ×2 (07:01→08:18)
[2020-08-24] MEDS ORDERED: BRIMONIDINE 0.2% OPHTH DROPS 5 ML ONE (07:01)
[2020-08-24] MEDS ORDERED: VANCOMYCIN OPHTHALMI 8MG/0.8ML 8 MG/0.8 ML SYRINGE IO ONE ×2 (07:02→08:18)
[2020-08-24] MEDS ORDERED: BSS/LIDOCAINE/EPINEPHRINE 1 ML SYRINGE ONE (07:02)
[2020-08-24 07:50] LABS: B. PARAPERTUSSIS- RESP PCR PAN NOT DETECTED; B. PERTUSSIS- RESP PCR PANEL NOT DETECTED; C. PNEUMONIAE- RESP PCR PANEL NOT DETECTED; CORONAVIRUS 229E-RESP PCR NOT DETECTED; CORONAVIRUS HKU1-RESP PCR NOT DETECTED; CORONAVIRUS NL63-RESP PCR NOT DETECTED; CORONAVIRUS OC43-RESP PCR NOT DETECTED; HUMAN METAPNEUMOVIRUS NOT DETECTED; INFLUENZA A- RESP PCR PANEL NOT DETECTED; INFLUENZA B - RESP PCR PANEL NOT DETECTED; M. PNEUMONIAE- RESP PCR PANEL NOT DETECTED; PARAINFLUENZA VIRUS 1 NOT DETECTED; PARAINFLUENZA VIRUS 2 NOT DETECTED; PARAINFLUENZA VIRUS 3 NOT DETECTED; PARAINFLUENZA VIRUS 4 NOT DETECTED; RHINOVIRUS/ENTEROVIRUS NOT DETECTED; RSV- RESP PCR PANEL NOT DETECTED; SARS-CoV-2 -RESP PCR PANEL NOT DETECTED
[2020-08-24] MEDS ORDERED: MIDAZOLAM 2 MG/2 ML VIAL ONE (08:01)
--- NOTE | 2020-08-24 08:12 | ANESTHESIA ---
Pre-Anesthesia VS, & Labs - Diagnosis left combined cataract - Procedure left cataract extraction with IOL Vital Signs: Temp Pulse Resp BP Pulse Ox 36.4 C L 60 16 157/60 H 98 08/24/20 07:25 08/24/20 07:25 08/24/20 07:25 08/24/20 07:25 08/24/20 07:25 Height: 5 ft 7 in Weight (kg): 107.2 kg Body Mass Index: 37.0 BMI Classification: Obese - Is Patient ?: No - Lab Results Current Lab Results: Laboratory Tests 08/24/20 07:28: POC Whole Bld Glucose 67 L Home Medications and Allergies Allergies/Adverse Reactions: Allergies Allergy/AdvReac Type Severity Reaction Status Date / Time amoxicillin [From Augmentin] Allergy Hives Verified 05/22/20 19:40 clavulanic acid Allergy Hives Verified 05/22/20 19:40 [From Augmentin] colesevelam Allergy Edema Verified 05/22/20 19:40 Ijunzam-Cwm-Ota Reductase Allergy Edema Verified 05/22/20 19:40 Inhibitor Anes History & Medical History - Anesthetic History Anesthesia Complications: reports: No previous complications - Medical History Cardiovascular: reports: Congestive heart failure, [place], Atrial fibrillation Pulmonary: reports: None Gastrointestinal: reports: None Urinary: reports: None Neuro: reports: CVA Musculoskeletal: reports: Osteoarthritis Endocrine/Autoimmune: reports: Type 2 diabetes Blood Disorders: reports: None Skin: reports: None Smoking Status: Former smoker - Surgical History Eyes Ears Nose Throat (EENT): reports: Tonsil/Adenoidectomy Cardiothoracic: reports: Coronary stent Gynecologic: reports: Hysterectomy Exam General: Alert Dental: WNL Mouth Opening: Greater than 4 Fingerbreadths Mallampati classification: III Respiratory: Decreased breath sounds Cardiovascular: Other (irreg) Plan Anesthesia Type: MAC Consent for Procedure(s) Verified and Reviewed: Yes Code Status: Attempt Resuscitation ASA classification: 3-Severe systemic disease Is this case an emergency?: No
[2020-08-24] MEDS ORDERED: EPINEPHrine 1 MG/ML AMP IR ONE (08:17)
[2020-08-24] MEDS ORDERED: BRIMONIDINE 0.2% OPHTH DROPS 5 ML OPTH ONE (08:17)
[2020-08-24] MEDS ORDERED: CHONDR SULF/HYALURONATE SYRINGE IO ONE (08:18)
[2020-08-24] MEDS ORDERED: PROPARACAINE 0.5% OPHTH DROPS 15 ML EACHEYE ONE (08:18)
[2020-08-24] MEDS ORDERED: BSS/LIDOCAINE/EPINEPHRINE 1 ML SYRINGE IO ONE (08:18)
[2020-08-24] MEDS ORDERED: TIMOLOL 0.5% OPHTH DROPS OPTH ONE (08:18)
[2020-08-24 08:51] VITALS: BP 145/58
--- NOTE | 2020-08-24 09:18 | ANESTHESIA POST OP EVALUATION ---
Anesthesia Post Eval - Post Anesthesia Eval Vitals: Last Vital Signs Temp 36.3 C L 08/24/20 08:30 Pulse 55 L 08/24/20 08:50 Resp 16 08/24/20 08:50 BP 145/58 H 08/24/20 08:50 Pulse Ox 96 08/24/20 08:50 CV Function Including HR & BP: Stable Pain Control: Satisfactory Nausea & Vomiting: Negative Mental Status: Baseline Respiratory Status: Airway Patent Hydration Status: Satisfactory Anesthesia Complications: None
--- NOTE | 2020-08-24 09:37 | OPERATIVE REPORT ---
DATE OF SERVICE: 08/24/2020 Physician: Rupesh Awan MD PREOPERATIVE DIAGNOSIS: Visually significant cataract, left eye. Cataract surgery was performed on the right eye in 2016 elsewhere. POSTOPERATIVE DIAGNOSIS: Visually significant cataract, left eye. Cataract surgery was performed on the right eye in 2016 elsewhere. PROCEDURE: Phacoemulsification with posterior chamber intraocular lens implant, left eye. SURGEON: Rupesh Awan MD. ANESTHESIA: Monitored anesthesia care. COMPLICATIONS: None. OPERATIVE INDICATIONS: This is an 79-year-old woman with progressive vision loss in the left eye due to 2+ nuclear sclerotic, 2+ cortical, and 2+ posterior subcapsular cataract. Best corrected visual acuity was 20/320 with glare to count fingers at 3 feet in the left eye. Of note, this is an amblyop ic eye, and she has also had proliferative diabetic retinopathy and macular degeneration, status post PRP. She was consented at length concerning risks and benefits of cataract surgery, after which she expressed a desire to proceed with surgery. OPERATIVE PROCEDURE: The patient was taken into OR #3 and placed under monitored anesthesia care. A surgical timeout was conducted, confirming correct patient, correct procedure, and correct surgical site. She was given topical anesthesia and prepped and draped in usual sterile fashion. The eye was entered at the 6 and 3 o'clock positions. Intracameral Shugarcaine was injected into the anterior c hamber followed by Viscoat. A continuous-tear curvilinear capsulorrhexis was performed. The nucleus was hydrodissected and phacoemulsified. The cortex was evacuated using automated infusion and aspir ation. Provisc was injected in the capsular bag and a 22.5 diopter intraocular lens inserted into th e bag. Infusion and aspiration were used to evacuate the viscoelastic materials. The eye was inflat ed to physiologic pressure using balanced salt solution and found to be watertight. Approximately 0. 25 mL of a mixture of triamcinolone and moxifloxacin was injected transsclerally into the vitreous in the inferotemporal quadrant. An additional 0.55 mL of a mixture of triamcinolone, moxifloxacin, and vancomycin was injected subconjunctivally in the superior quadrant for infection and inflammation pr ophylaxis. Wound integrity was checked with Weck-Ashly sponges. The patient was taken from the operat ing room in good condition and given postoperative instructions. TD: 08/24/2020 09:36
== END 2020-08-24 06:31 | disposition home or self-care (01) ==
LOC: SDS 06:30
PROVIDERS: ATTEND Ophthalmology
DX: E11.36 Type 2 diabetes mellitus with diabetic cataract (principal); H25.812 Combined forms of age-related cataract, left eye; Z79.4 Long term (current) use of insulin; Z98.41 Cataract extraction status, right eye; E66.9 Obesity, unspecified; Z20.822 Contact with and (suspected) exposure to COVID-19; I11.0 Hypertensive heart disease with heart failure; I50.9 Heart failure, unspecified; I48.91 Unspecified atrial fibrillation; Z86.73 Personal history of transient ischemic attack (TIA), and cerebral infarction without residual deficits; Z87.891 Personal history of nicotine dependence; Z68.37 Body mass index [BMI] 37.0-37.9, adult
CPT/HCPCS: 66984; 87631; A9270; J3490; 0202U

== ENCOUNTER 2020-08-24 06:38 | Outpatient (CLI) | payer MEDICARE, OTHER | END 2020-08-24 06:39 | disposition home or self-care (01) | LOC: LAB 06:38 | PROVIDERS: ATTEND Ophthalmology | DX: Z01.812 Encounter for preprocedural laboratory examination (principal); H25.812 Combined forms of age-related cataract, left eye; E11.9 Type 2 diabetes mellitus without complications ==

== ENCOUNTER 2020-11-14 08:00 | Outpatient (CLI) | payer MEDICARE, OTHER ==
--- NOTE | 2020-11-14 16:29 | XRAY Report ---
PROCEDURE: Knee 3 View LT INDICATIONS: SPRAIN OF LEFT LEG TECHNIQUE: 3 views of the left knee(s) were acquired. COMPARISON: None. FINDINGS: Bones: No fractures or dislocations. Moderate tricompartmental osteoarthritis is seen more prominen t in medial femoral tibial compartment and patellofemoral compartment. No suspicious bony lesions. Soft tissues: Moderate suprapatellar joint effusion is seen. No suspicious soft tissue calcifications . IMPRESSION: Moderate tricompartmental osteoarthritis. No fracture or dislocation. Moderate suprapate llar joint effusion. Reviewed by: Prem Ashley MD on 11/14/2020 4:28 PM PDT Approved by: Prem Ashley MD on 11/14/2020 4:28 PM PDT Station ID: [id number]
== END 2020-11-14 23:59 | disposition home or self-care (01) ==
LOC: DI.S 08:00
PROVIDERS: ATTEND Emergency Medicine
DX: S86.912A Strain of unspecified muscle(s) and tendon(s) at lower leg level, left leg, initial encounter (principal); M17.12 Unilateral primary osteoarthritis, left knee

== ENCOUNTER 2020-12-27 09:17 | Outpatient (CLI) | payer MEDICARE, OTHER ==
[2020-12-27 14:37] LABS: BASOPHILS # (AUTO) 0.1 10^3/uL (0.0-0.1); BASOPHILS % (AUTO) 0.9 %; EOSINOPHILS # (AUTO) 0.5 10^3/uL (0.0-0.7); EOSINOPHILS % (AUTO) 5.7 %; HCT - HEMATOCRIT 42.2 % (37.0-47.0); HGB - HEMOGLOBIN 12.9 g/dL (12.0-16.0); LYMPHOCYTES # (AUTO) 1.3 10^3/uL (1.5-3.5); LYMPHOCYTES % (AUTO) 13.9 %; MEAN CORPUSCULAR HEMOGLOBIN 26.7 pg (27.0-31.0); MEAN CORPUSCULAR HGB CONC 30.6 g/dL (32.0-36.0); MEAN CORPUSCULAR VOLUME 87.2 fL (81.0-99.0); MEAN PLATELET VOLUME 9.9 fL (7.9-10.8); MONOCYTES # (AUTO) 0.6 10^3/uL (0.0-1.0); MONOCYTES % (AUTO) 6.1 %; NEUTROPHILS % (AUTO) 73.2 %; PLT - PLATELET COUNT 346 10^3/uL (130-450); RED BLOOD COUNT 4.84 10^6/uL (4.20-5.40); RED CELL DISTRIBUTION WIDTH 13.7 % (12.0-15.0); WHITE BLOOD COUNT 9.6 x10^3/uL (4.8-10.8)
[2020-12-27 14:58] LABS: ALBUMIN 3.7 g/dL (3.2-5.5); ALKALINE PHOSPHATASE 67 IU/L (42-121); ALT ALANINE AMINOTRANSFERASE 14 IU/L (10-60); AST ASPARTATE AMINOTRANSFERASE 18 IU/L (10-42); BILIRUBIN,TOTAL 0.7 mg/dL (0.2-1.0); BUN - BLOOD UREA NITROGEN 19 mg/dL (6-20); CARBON DIOXIDE - CO2 25 mmol/L (21-32); CHLORIDE 101 mmol/L (101-111); CHOL/HDL RATIO 3.4 (<4.4); CHOLESTEROL 134 mg/dL; CREATININE 0.8 mg/dL (0.4-1.0); GFR - MDRD 69 (>89); GLUCOSE 81 mg/dL (70-100); HDL CHOLESTEROL 40 mg/dL; LDL CHOLESTEROL,CALCULATED 74 mg/dL; LDL/HDL RATIO 1.9 (<4.4); SODIUM 137 mmol/L (135-145); TOTAL PROTEIN 7.5 g/dL (6.7-8.2); TRIGLYCERIDES 100 mg/dL; VLDL CHOLESTEROL 20 mg/dL
[2020-12-27 15:04] LABS: THYROID STIMULATING HORMONE 1.74 uIU/mL (0.34-5.60)
[2020-12-27 20:15] LABS: ESTIMATED AVERAGE GLUCOSE 134 mg/dL (70-100); HEMOGLOBIN A1c% 6.3 % (4.27-6.07)
== END 2020-12-27 09:18 | disposition home or self-care (01) ==
LOC: LAB.S 09:17
PROVIDERS: ATTEND Registered Nurse
DX: I69.951 Hemiplegia and hemiparesis following unspecified cerebrovascular disease affecting right dominant side (principal); I50.9 Heart failure, unspecified; E11.65 Type 2 diabetes mellitus with hyperglycemia
CPT/HCPCS: 36415; 80053; 80061; 82043; 82570; 83036; 83721; 84443; 85025

== ENCOUNTER 2021-01-16 14:30 | Outpatient (CLI) | payer MEDICARE, OTHER ==
--- NOTE | 2021-01-16 16:56 | XRAY Report ---
PROCEDURE: Hips 2V BILAT INDICATIONS: L HIP PX TECHNIQUE: 2 views of the hip were acquired. COMPARISON: None. FINDINGS: Bones: No definite fractures or dislocations. No suspicious bony lesions. The visualized pelvic ri ng appears intact. Severe bilateral hip joint degeneration with near hnnx-wh-xqmk appearance. Lumbar spondylosis and facet disease. Lateral view is nondiagnostic secondary to body habitus. Soft tissues: No suspicious soft tissue calcifications or masses. IMPRESSION: Moderate to severe bilateral hip joint degeneration. Reviewed by: Ryan Jimenez MD on 01/16/2021 4:55 PM PDT Approved by: Ryan Jimenez MD on 01/16/2021 4:55 PM PDT Station ID: [id number]
--- NOTE | 2021-01-16 16:58 | XRAY Report ---
PROCEDURE: Knee 4 View LT INDICATIONS: OA, L KNEE TECHNIQUE: 5 views of the left knee(s) were acquired. COMPARISON: None. FINDINGS: No acute fracture identified. Imix-aq-ifesasix narrowing of the medial lateral joint spaces. Scattere d subchondral sclerosis and spurring. Anatomic alignment. No definite joint effusion. Scattered vasc ular calcifications. Severe narrowing of the patellofemoral joint space. IMPRESSION: Left knee joint degeneration as above. Overall, no definite interval progression since . Reviewed by: Ryan Jimenez MD on 01/16/2021 4:57 PM PDT Approved by: Ryan Jimenez MD on 01/16/2021 4:57 PM PDT Station ID: [id number]
== END 2021-01-16 23:59 | disposition home or self-care (01) ==
LOC: DI.N 14:30
PROVIDERS: ATTEND Physician Assistant
DX: M16.0 Bilateral primary osteoarthritis of hip (principal); M17.12 Unilateral primary osteoarthritis, left knee

== ENCOUNTER 2022-05-23 09:28 | Outpatient (CLI) | payer MEDICARE, OTHER ==
[2022-05-23 14:53] LABS: BASOPHILS # (AUTO) 0.1 10^3/uL (0.0-0.1); BASOPHILS % (AUTO) 0.8 %; EOSINOPHILS # (AUTO) 0.3 10^3/uL (0.0-0.7); EOSINOPHILS % (AUTO) 3.9 %; HCT - HEMATOCRIT 42.7 % (37.0-47.0); LYMPHOCYTES # (AUTO) 1.2 10^3/uL (1.5-3.5); LYMPHOCYTES % (AUTO) 16.3 %; MEAN CORPUSCULAR HEMOGLOBIN 26.5 pg (27.0-31.0); MEAN CORPUSCULAR HGB CONC 30.4 g/dL (32.0-36.0); MEAN PLATELET VOLUME 9.6 fL (7.9-10.8); MONOCYTES # (AUTO) 0.5 10^3/uL (0.0-1.0); MONOCYTES % (AUTO) 7.3 %; NEUTROPHILS # (AUTO) 5.1 10^3/uL (1.5-6.6); NEUTROPHILS % (AUTO) 71.4 %; PLT - PLATELET COUNT 294 10^3/uL (130-450); RED BLOOD COUNT 4.91 10^6/uL (4.20-5.40); RED CELL DISTRIBUTION WIDTH 14.5 % (12.0-15.0); WHITE BLOOD COUNT 7.1 x10^3/uL (4.8-10.8)
[2022-05-23 14:54] LABS: ESTIMATED AVERAGE GLUCOSE 143 mg/dL (70-100); HEMOGLOBIN A1c% 6.6 % (4.27-6.07)
[2022-05-23 15:29] LABS: ALBUMIN 3.6 g/dL (3.2-5.5); ALKALINE PHOSPHATASE 64 IU/L (42-121); ALT ALANINE AMINOTRANSFERASE 11 IU/L (10-60); AST ASPARTATE AMINOTRANSFERASE 17 IU/L (10-42); BUN - BLOOD UREA NITROGEN 15 mg/dL (6-20); CARBON DIOXIDE - CO2 25 mmol/L (21-32); CHLORIDE 104 mmol/L (101-111); CHOL/HDL RATIO 4.2 (<4.4); CHOLESTEROL 192 mg/dL; CREATININE 0.7 mg/dL (0.4-1.0); GFR - MDRD 80 (>89); GLUCOSE 90 mg/dL (70-100); HDL CHOLESTEROL 46 mg/dL; LDL CHOLESTEROL,CALCULATED 126 mg/dL; LDL/HDL RATIO 2.7 (<4.4); POTASSIUM 3.8 mmol/L (3.5-5.0); SODIUM 138 mmol/L (135-145); TOTAL PROTEIN 7.2 g/dL (6.7-8.2); TRIGLYCERIDES 98 mg/dL; VLDL CHOLESTEROL 20 mg/dL
[2022-05-23 16:10] LABS: THYROID STIMULATING HORMONE 2.37 uIU/mL (0.34-5.60)
== END 2022-05-23 09:29 | disposition home or self-care (01) ==
LOC: LAB.S 09:28
PROVIDERS: ATTEND Registered Nurse
DX: E11.65 Type 2 diabetes mellitus with hyperglycemia (principal); Z79.899 Other long term (current) drug therapy; Z13.220 Encounter for screening for lipoid disorders; Z13.29 Encounter for screening for other suspected endocrine disorder
CPT/HCPCS: 36415; 80053; 80061; 82043; 82570; 83036; 83721; 84443; 85025

== ENCOUNTER 2023-04-08 11:16 | Emergency (ER) | payer MEDICARE, OTHER ==
--- NOTE | 2023-04-08 11:51 | XRAY Report ---
PROCEDURE: Chest 1 View X-Ray INDICATIONS: Chest Pain TECHNIQUE: One view of the chest was acquired. COMPARISON: 05/22/2020. FINDINGS: Surgical changes and devices: None. Lungs and pleura: No pleural effusions or pneumothorax. Interstitial pulmonary edema. Mediastinum: Mediastinal contours appear normal. Mild cardiomegaly. Bones and chest wall: No suspicious bony lesions. Overlying soft tissues appear unremarkable. IMPRESSION: Congestive heart failure exacerbation. Reviewed by: Sam Rene MD on 04/08/2023 11:50 AM PST Approved by: Sam Rene MD on 04/08/2023 11:50 AM PST Station ID: [id number]
[2023-04-08 12:07] LABS: BASOPHILS # (AUTO) 0.1 10^3/uL (0.0-0.1); BASOPHILS % (AUTO) 0.9 %; EOSINOPHILS # (AUTO) 0.3 10^3/uL (0.0-0.7); EOSINOPHILS % (AUTO) 3.3 %; HCT - HEMATOCRIT 37.7 % (37.0-47.0); HGB - HEMOGLOBIN 11.8 g/dL (12.0-16.0); LYMPHOCYTES # (AUTO) 0.8 10^3/uL (1.5-3.5); LYMPHOCYTES % (AUTO) 10.3 %; MEAN CORPUSCULAR HEMOGLOBIN 27.7 pg (27.0-31.0); MEAN CORPUSCULAR HGB CONC 31.3 g/dL (32.0-36.0); MEAN CORPUSCULAR VOLUME 88.5 fL (81.0-99.0); MEAN PLATELET VOLUME 9.3 fL (7.9-10.8); MONOCYTES # (AUTO) 0.5 10^3/uL (0.0-1.0); MONOCYTES % (AUTO) 5.8 %; NEUTROPHILS # (AUTO) 6.3 10^3/uL (1.5-6.6); NEUTROPHILS % (AUTO) 79.4 %; PLT - PLATELET COUNT 271 10^3/uL (130-450); RED BLOOD COUNT 4.26 10^6/uL (4.20-5.40); RED CELL DISTRIBUTION WIDTH 15.9 % (12.0-15.0); WHITE BLOOD COUNT 7.9 x10^3/uL (4.8-10.8)
--- NOTE | 2023-04-08 12:30 | ED Physician Documentation ---
History of Present Illness - Stated complaint Stated Complaint: SOA - Chief complaint Chief Complaint: Resp - Additonal information Additional information: 82-year-old female has a past medical history most significant for congestive heart failure, atrial fibs anticoagulated on Eliquis presents to the emergency department for several weeks of exertional shortness of air, increased cough and worsening lower extremity swelling. Patient is brought to the ER by her sister. She resides at [facility]. Patient states that normally when she wheeled herself down the long hallway she does not need to stop or rest but has had to increasingly over the last week. Unbeknownst to the sister the patient elicits to me that she is taking only half the dose of torsemide she should be taking as she does not like urinating a lot. Instead of taking 20 mg a day she is only taking 10. This has increased her cough and lower extremity edema. She denies chest pain or fevers. Reports compliance with her other medications including anticoagulant otherwise. Review of Systems Constitutional: denies: Fever Throat: reports: Reviewed and negative Cardiac: reports: Chest pain / pressure, Pedal edema. denies: Palpitations, Calf pain Respiratory: reports: Dyspnea, Cough. denies: Hemoptysis, Wheezing GI: reports: Reviewed and negative : reports: Reviewed and negative Skin: reports: Reviewed and negative PD PAST MEDICAL HISTORY - Past Medical History Past Medical History: Yes Cardiovascular: Congestive heart failure, Hypertension, High cholesterol, Peripheral Vascular Disease, [place], Atrial fibrillation, Other Respiratory: None, Sleep apnea Neuro: CVA Endocrine/Autoimmune: Type 2 diabetes GI: None : None Psych: None Musculoskeletal: Osteoarthritis Derm: None Other Past Medical History: carotid stenosis, RCA stent, right hemiparesis - Past Surgical History Past Surgical History: Yes /DRAFTING L[employer] MAN: Hysterectomy Cardiovascular: Coronary stent HEENT: Tonsil/Adenoidectomy - Present Medications Home Medications: Ambulatory Orders Medication Instructions Recorded Confirmed Apixaban [Eliquis] 5 mg PO BID tablet 05/24/20 Aspirin EC [Ecotrin] 81 mg PO DAILY tablet 05/24/20 Ezetimibe [Zetia] 10 mg PO QD #30 tablet 05/24/20 Insulin Lispro 100 unit SQ ACHS #1 vial 05/24/20 Metoprolol Tartrate [Lopressor] 12.5 mg PO BID tablet 05/24/20 Torsemide 20 mg PO DAILY #30 tablet 05/24/20 glipiZIDE [Glipizide] 5 mg PO BID #60 tablet 05/24/20 Losartan Potassium 25 mg PO DAILY 04/08/23 04/08/23 - Allergies Allergies/Adverse Reactions: Allergies Allergy/AdvReac Type Severity Reaction Status Date / Time amoxicillin [From Augmentin] Allergy Hives Verified 04/08/23 11:28 clavulanic acid Allergy Hives Verified 04/08/23 11:28 [From Augmentin] colesevelam Allergy Edema Verified 04/08/23 11:28 Yythtod-RCQ-FsP Reductase Allergy Edema Verified 04/08/23 11:28 Inhibitor [Ijlxbon-Duq-Vdo Reductase Inhibitor] - Social History Does the pt smoke?: Yes Smoking Status: Current every day smoker Does the pt drink ETOH?: No Does the pt have substance abuse?: No - Immunizations Immunizations are current?: Yes PD ED PE NORMAL - General General: Alert and oriented X 3, No acute distress, Well developed/nourished (obese) - HEENT HEENT: Atraumatic - Neck Neck: Supple, no meningeal sign, No adenopathy - Cardiac Cardiac: RRR, Strong equal pulses. No: No murmur (2+ systoloc murmur) - Respiratory Respiratory: No respiratory distress - Abdomen Abdomen: Normal bowel sounds, Soft - Back Back: No CVA TTP - Derm Derm: Normal color - Extremities Extremities: No deformity. No: No edema (Significant 3+ pitting edema/anasarca of the lower extremities bilaterally) - Neuro Neuro: Alert and oriented X 3, deputy administrator 2-12 intact Eye Opening: Spontaneous Motor: Obeys Commands Verbal: Oriented GCS Score: 15 Results - Vitals Vitals: Vital Signs - 24 hr 04/08/23 04/08/23 11:21 12:25 Temperature 36.5 C Heart Rate 56 L 55 L Respiratory 16 15 Rate Blood Pressure 154/62 H 190/76 H O2 Saturation 94 95 Oxygen O2 Source Room air - EKG (time done) 1136 EKG releavant findings:: EKG personally interpreted by author of this note. Relevant findings are: Rate: Rate (enter#) (49) Rhythm: Atrial fibrillation QRS: Low voltage Ischemia: Non specific changes Compare to prior EKG: Unchanged from prior EKG Computer interpretation: Agree with computer - Labs Labs: Laboratory Tests 04/08/23 04/08/23 11:53 11:53 WBC 7.9 RBC 4.26 Hgb 11.8 L Hct 37.7 MCV 88.5 MCH 27.7 MCHC 31.3 L RDW 15.9 H Plt Count 271 MPV 9.3 Neut # (Auto) 6.3 Lymph # (Auto) 0.8 L [place] # (Auto) 0.5 Eos # (Auto) 0.3 Baso # (Auto) 0.1 Absolute Nucleated RBC 0.00 Nucleated RBC % 0.0 Sodium 139 Potassium 3.5 Chloride 104 Carbon Dioxide 26 Anion Gap 9.0 BUN 17 Creatinine 0.8 Estimated GFR (MDRD) 69 L Glucose 79 Calcium 9.5 Total Bilirubin 1.1 H AST 20 ALT 15 Alkaline Phosphatase 74 Total Protein 7.1 Albumin 4.2 Globulin 2.9 Albumin/Globulin Ratio 1.4 Lipase 17 - Rads (name of study) cxr Relevant Findings:: Final report received (Interstitial pulmonary edema consistent with congestive heart failure exacerbation) PD Medical Decision Making - ED course Complexity details: reviewed results, re-evaluated patient, d/w patient ED course: 82-year-old female presents emergency department for evaluation of increased exertional dyspnea, increased swelling of her lower legs and increased cough. She does have a history of normal ejection congestive heart failure last echo in 2020. Also has a history of A-fib anticoagulated on Eliquis. At baseline she typically gets around with a wheelchair but has found increased dyspnea with use of the wheelchair over the last several weeks. Also increased leg swelling. She is prescribed 20 mg of torsemide daily but patient states that she does not like urinating that much so she is only been taking 10 mg a day for the last several weeks. This coincides with the increase in symptoms. Presentation to the emergency department I am greeted by a very pleasant well- appearing elderly female. Room air saturations are 95%. She is in no dyspnea at baseline. She does have some modest hypertension with a systolic of 180. She has noted to be in A-fib rate controlled. 2+ systolic murmur. CBC reveals a hemoglobin of 11.8 mildly low but within her baseline. Chemistry shows normal renal function. Her BNP is elevated. A chest x-ray shows some volume overload consistent with congestive heart failure. Clinically the patient appears to have some CHF exacerbation likely secondary to medication noncompliance. I am encouraging the patient to take torsemide 30 mg a day for the next week and then reduce to her typical dose of 20 a day. Clinically the patient does not meet hospitalization criteria given the lack of hypoxia. I discussed with patient the usual emergent return precautions for failure symptoms resolve and advised prompt follow-up with PCP and teletypesetter operator christian geller Departure - Departure Disposition: 01 Home, Self Care Clinical Impression: History of atrial fibrillation, Nonadherence to medication Acute exacerbation of congestive heart failure Qualifiers: Heart failure type: unspecified Qualified Code(s): I50.9 - Heart failure, unspecified Condition: Stable Record reviewed to determine appropriate education?: Yes Follow-Up: Deanna Gonzales ARNP [Primary Care Provider] - Comments: Karen you are seen today in the emergency department because for the last several weeks you have been having some shortness of breath with exertion, increased swelling of your lower legs and an increase to your baseline cough. You reported to us that you are only taking half the dose of torsemide, 10mg daily instead of the 20 mg a day that you should be taking. Your chest x-ray does show some excessive volume within your lungs consistent with heart failure. It is important you discuss this ED visit with your primary care doctor as well as your teletypesetter operator. Over the next week I recommend that you take torsemide 30 mg each day and after 1 week can reduce to your usual prescribed dose of 20 mg. I would expect that with this increased dose of torsemide you are having increased urination, decreased leg swelling, weight as well as decreased shortness of air. Return immediately to the ER if you find that you are having any new or worsening symptoms, develop chest pain or find that the swelling and shortness of air does not resolve with this treatment. Forms: PCP List
[2023-04-08 12:50] LABS: ALBUMIN 4.2 g/dL (3.2-5.5); ALBUMIN/GLOBULIN RATIO 1.4 (1.0-2.2); BILIRUBIN,TOTAL 1.1 mg/dL (0.2-1.0); CALCIUM 9.5 mg/dL (8.5-10.3); CREATININE 0.8 mg/dL (0.6-1.3); POTASSIUM 3.5 mmol/L (3.5-4.5); TOTAL PROTEIN 7.1 g/dL (6.4-8.9)
[2023-04-08 13:33] VITALS: BP 180/63; O2SAT 94
== END 2023-04-08 13:25 | disposition home or self-care (01) ==
LOC: ED 11:16
DX: I11.0 Hypertensive heart disease with heart failure (principal); I50.9 Heart failure, unspecified; T50.1X6A Underdosing of loop [high-ceiling] diuretics, initial encounter; I48.91 Unspecified atrial fibrillation; Z79.01 Long term (current) use of anticoagulants; F17.200 Nicotine dependence, unspecified, uncomplicated; E11.9 Type 2 diabetes mellitus without complications; Z79.4 Long term (current) use of insulin; Z79.84 Long term (current) use of oral hypoglycemic drugs; Z99.3 Dependence on wheelchair
CPT/HCPCS: 36415; 80053; 83690; 83880; 84484; 85025; 93005; 99284

== ENCOUNTER 2023-07-17 07:14 | Outpatient (CLI) | payer MEDICARE, OTHER ==
[2023-07-17 15:50] LABS: BASOPHILS # (AUTO) 0.1 10^3/uL (0.0-0.1); BASOPHILS % (AUTO) 0.7 %; EOSINOPHILS # (AUTO) 0.3 10^3/uL (0.0-0.7); EOSINOPHILS % (AUTO) 3.7 %; HCT - HEMATOCRIT 39.5 % (37.0-47.0); HGB - HEMOGLOBIN 11.9 g/dL (12.0-16.0); LYMPHOCYTES # (AUTO) 1.1 10^3/uL (1.5-3.5); LYMPHOCYTES % (AUTO) 12.7 %; MEAN CORPUSCULAR HEMOGLOBIN 27.2 pg (27.0-31.0); MEAN CORPUSCULAR HGB CONC 30.1 g/dL (32.0-36.0); MEAN CORPUSCULAR VOLUME 90.2 fL (81.0-99.0); MEAN PLATELET VOLUME 10.5 fL (7.9-10.8); MONOCYTES # (AUTO) 0.6 10^3/uL (0.0-1.0); MONOCYTES % (AUTO) 6.7 %; NEUTROPHILS # (AUTO) 6.5 10^3/uL (1.5-6.6); PLT - PLATELET COUNT 261 10^3/uL (130-450); RED BLOOD COUNT 4.38 10^6/uL (4.20-5.40); RED CELL DISTRIBUTION WIDTH 15.4 % (12.0-15.0); WHITE BLOOD COUNT 8.6 x10^3/uL (4.8-10.8)
[2023-07-17 16:09] LABS: ALBUMIN 3.8 g/dL (3.2-5.5); ALBUMIN/GLOBULIN RATIO 1.2 (1.0-2.2); ALKALINE PHOSPHATASE 64 IU/L (42-121); ALT ALANINE AMINOTRANSFERASE 10 IU/L (10-60); AST ASPARTATE AMINOTRANSFERASE 15 IU/L (10-42); BILIRUBIN,TOTAL 0.9 mg/dL (0.2-1.0); BUN - BLOOD UREA NITROGEN 23 mg/dL (6-20); CALCIUM 9.2 mg/dL (8.5-10.3); CARBON DIOXIDE - CO2 29 mmol/L (21-32); CHLORIDE 101 mmol/L (101-111); CHOLESTEROL 186 mg/dL; CREATININE 0.8 mg/dL (0.6-1.3); GFR - MDRD 69 (>89); GLUCOSE 80 mg/dL (74-104); HDL CHOLESTEROL 47 mg/dL; LDL CHOLESTEROL,CALCULATED 117 mg/dL; LDL/HDL RATIO 2.5 (<4.4); POTASSIUM 3.5 mmol/L (3.5-4.5); SODIUM 137 mmol/L (135-145); TRIGLYCERIDES 108 mg/dL (48-352); VLDL CHOLESTEROL 22 mg/dL
[2023-07-17 16:15] LABS: THYROID STIMULATING HORMONE 2.74 uIU/mL (0.34-5.60)
[2023-07-17 22:26] LABS: ESTIMATED AVERAGE GLUCOSE 126 mg/dL (70-100)
== END 2023-07-17 07:15 | disposition home or self-care (01) ==
LOC: LAB.S 07:14
PROVIDERS: ATTEND Registered Nurse
DX: E11.65 Type 2 diabetes mellitus with hyperglycemia (principal); Z13.228 Encounter for screening for other metabolic disorders; Z13.220 Encounter for screening for lipoid disorders; Z13.29 Encounter for screening for other suspected endocrine disorder; Z13.0 Encounter for screening for diseases of the blood and blood-forming organs and certain disorders involving the immune mechanism
CPT/HCPCS: 36415; 80053; 80061; 82043; 82570; 83036; 83721; 84443; 85025

== ENCOUNTER 2023-08-21 09:10 | Outpatient (CLI) | payer MEDICARE, OTHER | END 2023-08-21 09:11 | disposition home or self-care (01) | LOC: DI 09:10 | PROVIDERS: ATTEND Registered Nurse | DX: I49.8 Other specified cardiac arrhythmias (principal); I11.0 Hypertensive heart disease with heart failure; I50.9 Heart failure, unspecified; E78.5 Hyperlipidemia, unspecified; Z79.01 Long term (current) use of anticoagulants; I35.0 Nonrheumatic aortic (valve) stenosis; I27.20 Pulmonary hypertension, unspecified; I48.91 Unspecified atrial fibrillation; I05.0 Rheumatic mitral stenosis; I87.8 Other specified disorders of veins | CPT/HCPCS: 93307 ==

== ENCOUNTER 2023-12-18 14:21 | Outpatient (CLI) | payer MEDICARE, OTHER ==
[2023-12-18 14:40] LABS: BASOPHILS # (AUTO) 0.1 10^3/uL (0.0-0.1); BASOPHILS % (AUTO) 0.9 %; EOSINOPHILS # (AUTO) 0.2 10^3/uL (0.0-0.7); EOSINOPHILS % (AUTO) 2.5 %; HCT - HEMATOCRIT 37.5 % (37.0-47.0); HGB - HEMOGLOBIN 11.7 g/dL (12.0-16.0); LYMPHOCYTES # (AUTO) 0.9 10^3/uL (1.5-3.5); LYMPHOCYTES % (AUTO) 10.9 %; MEAN CORPUSCULAR HGB CONC 31.2 g/dL (32.0-36.0); MEAN CORPUSCULAR VOLUME 86.4 fL (81.0-99.0); MEAN PLATELET VOLUME 9.8 fL (7.9-10.8); MONOCYTES # (AUTO) 0.5 10^3/uL (0.0-1.0); MONOCYTES % (AUTO) 5.9 %; NEUTROPHILS # (AUTO) 6.3 10^3/uL (1.5-6.6); NEUTROPHILS % (AUTO) 79.4 %; PLT - PLATELET COUNT 269 10^3/uL (130-450); RED BLOOD COUNT 4.34 10^6/uL (4.20-5.40); RED CELL DISTRIBUTION WIDTH 15.5 % (12.0-15.0)
[2023-12-18 14:53] LABS: CALCIUM 9.1 mg/dL (8.5-10.3); POTASSIUM 3.8 mmol/L (3.5-4.5)
== END 2023-12-18 14:22 | disposition home or self-care (01) ==
LOC: LAB 14:21
PROVIDERS: ATTEND Registered Nurse
DX: R63.5 Abnormal weight gain (principal); I50.9 Heart failure, unspecified; R06.09 Other forms of dyspnea
CPT/HCPCS: 36415; 80048; 83880; 85025

== ENCOUNTER 2024-02-20 13:46 | Inpatient (IN) ==
--- NOTE | 2024-02-20 14:27 | ED Physician Documentation ---
PD HPI DYSPNEA Stated complaint Stated Complaint: SOA Chief complaint Chief Complaint: Resp Additional information Additional information: 83-year-old female with history of type 2 diabetes, morbid obesity, hypertension, CHF presents emergency department for sudden onset shortness of breath. Patient says just shortly after around noon after she ate lunch she started to experience sudden onset shortness of breath. She has not had any recent illnesses no fevers or chills. Says that she feels like even when she is at rest she has a hard time taking a deep breath in. About a month ago she was changed from torsemide to Bumex and also changed from glipizide to Jardiance. No other acute recent medication changes no nausea or vomiting. Meds/Allgy Home Medications Ambulatory Orders Medication Instructions Recorded Confirmed apixaban 5 mg tablet (Eliquis) 5 mg PO BID 05/24/20 aspirin 81 mg tablet,delayed 81 mg PO DAILY 05/24/20 release ezetimibe 10 mg tablet 10 mg PO QD #30 tabs 05/24/20 glipizide 5 mg tablet 5 mg PO BID #60 tabs 05/24/20 insulin lispro 100 unit/mL 100 unit SQ ACHS #1 vial 05/24/20 subcutaneous solution metoprolol tartrate 25 mg tablet 12.5 mg (1/2 x 25 mg) PO BID 05/24/20 torsemide 10 mg tablet 20 mg (2 x 10 mg) PO DAILY #30 tabs 05/24/20 losartan 25 mg tablet 25 mg PO DAILY 04/08/23 04/08/23 Allergies Allergies Allergy/AdvReac Type Severity Reaction Status Date / Time amoxicillin (From Augmentin) Allergy Hives Verified 02/20/24 13:53 clavulanic acid (From Allergy Hives Verified 02/20/24 13:53 Augmentin) colesevelam Allergy Edema Verified 02/20/24 13:53 Wrxmclq-GXT-YcH Reductase Allergy Edema Verified 02/20/24 13:53 Inhibitor (Beqizza-Qte-Ire Reductase Inhibitor) PFSH Social History Social History Smoking Status: Current every day smoker Do you dip or chew tobacco?: No Do you vape?: No Living arrangement: Assisted living (move to [facility] and living at [facility] just the past 2 weeks. ) Living Condition: Alone Relationship: Home Mobility Equipment: Walker and Wheelchair Do you feel safe in your home environment?: Yes Suffered physical, verbal, emotional, or financial abuse?: No History of Abuse: No Exam Exam Vital Signs Temperature 36.8 C 02/20/24 18:00 Pulse Rate 68 02/20/24 19:59 Respiratory Rate 19 02/20/24 19:59 Blood Pressure 174/76 H 02/20/24 19:59 O2 Saturation 95 02/20/24 19:59 If not protocol: Oxygen Flow, liters/minute 2 02/20/24 19:59 Constitutional normal general appearance, no apparent distress, abnormal body habitus (obese), no limitations and alert Chest inspection of chest normal Respiratory breath sounds equal bilaterally, abnormal respiratory effort (shallow breathing) and auscultation abnormal (diminished breath sound) Cardiovascular normal heart rate noted, regular rhythm noted and edema noted (2+ bilateral pitting edema) Results Vitals Vitals: Vital Signs - 24 hr 02/20/24 13:54 02/20/24 14:12 02/20/24 14:12 Temperature 36.8 C Temperature Source Tympanic Pulse Rate 68 Respiratory Rate 16 Blood Pressure 170/65 H O2 Saturation 92 Oxygen Delivery Method Nasal Cannula Nasal Cannula O2 Source Nasal cannula Oxygen Flow Rate 2 If not protocol: Oxygen Flow, liters/minute 2 2 Pain Intensity 0 02/20/24 16:11 02/20/24 18:00 02/20/24 19:59 Temperature 36.6 C 36.8 C Temperature Source Tympanic Tympanic Pulse Rate 70 68 68 Respiratory Rate 18 22 19 Blood Pressure 160/66 H 159/83 H 174/76 H O2 Saturation 87 L 96 95 Oxygen Delivery Method O2 Source Room air Nasal cannula Nasal cannula Oxygen Flow Rate If not protocol: Oxygen Flow, liters/minute 2 Pain Intensity 0 0 0 Oxygen O2 Source Nasal cannula Oxygen Flow Rate 2 Labs Labs: Laboratory Tests 02/20/24 02/20/24 15:03 15:18 WBC 9.1 RBC 4.59 Hgb 12.0 Hct 39.1 MCV 85.2 MCH 26.1 L MCHC 30.7 L RDW 15.9 H Plt Count 267 MPV 9.5 Neut # (Auto) 7.4 H Lymph # (Auto) 0.7 L [place] # (Auto) 0.5 Eos # (Auto) 0.3 Baso # (Auto) 0.1 Absolute Nucleated RBC 0.00 Nucleated RBC % 0.0 Sodium 135 Potassium 3.6 Chloride 99 L Carbon Dioxide 26 Anion Gap 10.0 BUN 30 H Creatinine 1.2 Estimated GFR (MDRD) 43 L Glucose 265 H Calcium 9.0 Magnesium 2.2 Total Bilirubin 0.9 AST 17 ALT 6 L Alkaline Phosphatase 79 B-Natriuretic Peptide Cancelled 602 H Total Protein 7.2 Albumin 3.7 Globulin 3.5 Albumin/Globulin Ratio 1.1 Rads (name of study) Chest x-ray: Relevant Findings:: Final report received PD Medical Decision Making ED course ED course: 83-year-old female presents emerged part for increased shortness of breath and sudden onset hypoxia. To rule out possibility of pulmonary emboli given her hypoxia and sudden onset shortness of breath a CT angio was complete for further evaluation and no large central pulmonary embolus is visualized. She was found to have cardiomegaly no pericardial effusion she was also found to have three- vessel coronary artery arthrosclerotic calcifications with moderate arthrosclerotic calcifications through the thoracic and abdominal aorta. She also has small bilateral pleural effusions suggesting of extensive pulmonary edema no pneumothorax. She has no fevers or chills make me less suspicious or concern for possible pneumonia. Labs are complete for further evaluation no significant CBC abnormalities BNP elevated at 602. I do the patient experiencing acute respiratory failure with hypoxia due to CHF exacerbation. She is on 2 to 4 L of supplemental oxygen if not her oxygen level drops to the mid to low 80s on room air. She is given 40 mg of IV Lasix here in the emergency department with the production of 400 cc of urinary output. I spoke with on-call telemetry hospitalist who is graciously agreed to accept the patient for further care and patient is agreeable to stay. Discharge Plan Discharge Patient Disposition: 66 [facility] DC/Xfer Condition: Stable Clinical Impression: Acute exacerbation of CHF (congestive heart failure), Acute respiratory failure Interventions: ED Admission Assessment Last Done: 02/20/24 21:02
--- NOTE | 2024-02-20 14:53 | XRAY Report ---
PROCEDURE: XR Chest 1V INDICATIONS: SOA TECHNIQUE: One view of the chest was acquired. COMPARISON: 04/08/2023. FINDINGS: Surgical changes and devices: None. Lungs and pleura: No pleural effusions or pneumothorax. Diffuse bilateral pulmonary infiltrates cons istent with acute pulmonary edema. Mediastinum: Bilateral hilar enlargement suggests pulmonary arterial hypertension. Heart size is no rmal. Bones and chest wall: No suspicious bony lesions. Overlying soft tissues appear unremarkable. IMPRESSION: 1. Acute left heart failure. 2. Probable pulmonary arterial hypertension. Reviewed by: Sam Rene MD on 02/20/2024 2:52 PM PDT Approved by: Sam Rene MD on 02/20/2024 2:52 PM PDT Station ID: [id number]
[2024-02-20 15:28] LABS: BASOPHILS # (AUTO) 0.1 10^3/uL (0.0-0.1); BASOPHILS % (AUTO) 0.8 %; EOSINOPHILS # (AUTO) 0.3 10^3/uL (0.0-0.7); EOSINOPHILS % (AUTO) 3.6 %; HCT - HEMATOCRIT 39.1 % (37.0-47.0); LYMPHOCYTES # (AUTO) 0.7 10^3/uL (1.5-3.5); MEAN CORPUSCULAR HEMOGLOBIN 26.1 pg (27.0-31.0); MEAN CORPUSCULAR HGB CONC 30.7 g/dL (32.0-36.0); MEAN CORPUSCULAR VOLUME 85.2 fL (81.0-99.0); MEAN PLATELET VOLUME 9.5 fL (7.9-10.8); MONOCYTES # (AUTO) 0.5 10^3/uL (0.0-1.0); MONOCYTES % (AUTO) 5.7 %; NEUTROPHILS # (AUTO) 7.4 10^3/uL (1.5-6.6); NEUTROPHILS % (AUTO) 81.7 %; PLT - PLATELET COUNT 267 10^3/uL (130-450); RED BLOOD COUNT 4.59 10^6/uL (4.20-5.40); RED CELL DISTRIBUTION WIDTH 15.9 % (12.0-15.0); WHITE BLOOD COUNT 9.1 x10^3/uL (4.8-10.8)
[2024-02-20 15:29] LABS: MAGNESIUM 2.2 mg/dL (1.7-2.3)
[2024-02-20 15:35] LABS: ALBUMIN 3.7 g/dL (3.2-5.5); ALBUMIN/GLOBULIN RATIO 1.1 (1.0-2.2); BILIRUBIN,TOTAL 0.9 mg/dL (0.2-1.0); CREATININE 1.2 mg/dL (0.6-1.3); POTASSIUM 3.6 mmol/L (3.5-4.5); TOTAL PROTEIN 7.2 g/dL (6.4-8.9)
[2024-02-20] MEDS ORDERED: iohexoL-300 100 ML VIAL ONE (16:15)
[2024-02-20] MEDS: iohexoL-300 100 ML VIAL IVP ONE (16:50)
[2024-02-20] MEDS: FUROSEMIDE 40 MG/4 ML VIAL IVP STA (17:04)
--- NOTE | 2024-02-20 17:06 | CT Report ---
PROCEDURE: CT Angio Chest INDICATIONS: SOA, hypoxic, ?PE? CONTRAST: omni 300, 80 TECHNIQUE: After the administration of intravenous contrast, 2 mm axial images were acquired from the pulmonary apices to the posterior costophrenic angles during the arterial phase. In addition, 1 mm lung kernel and 5 mm soft tissue kernel reconstructions were performed. 3-dimensional coronal oblique maximum int ensity projection (MIP) reformats, 8 mm axial MIP, and 5 mm coronal and sagittal MPR reformats were t hen performed through the thorax. For radiation dose reduction, the following was used: automated exp osure control, adjustment of mA and/or kV according to patient size. COMPARISON: Chest radiograph dated 02/20/2024, 04/08/2023 and 05/22/2020. FINDINGS: Image quality: Excellent. Large vessels: No filling defects within the opacified pulmonary arteries, accounting for motion and contrast timing. Pulmonary artery is prominent in size which can be seen associated with pulmonary va scular hypertension. No thoracic aortic aneurysm. Lungs and pleura: Small bilateral pleural effusion is seen with compressive atelectasis in posterior aspect of bilateral lung dyer. Hazy groundglass opacities are noted throughout bilateral aerated nuha ng dyer concerning for extensive pulmonary edema versus pneumonitis. Central and peripheral airway is patent. No pneumothorax. Mediastinum: Heart size is enlarged. No pericardial effusion. Moderate atherosclerotic calcifications are noted in coronary vessels and thoracic aorta. No mediastinal adenopathy by size criteria. Chest wall and lower neck: Thyroid is unremarkable. No axillary or supraclavicular adenopathy by size . Bones: No aggressive osseous abnormality. Upper Abdomen: No gross abnormality is seen in the included portion of liver, spleen, and bilateral a drenal glands. Bilateral kidneys show no hydronephrosis. Cholelithiasis is seen without gross gallbla dder wall thickening or pericholecystic fluid.. IMPRESSION: 1. No large central pulmonary embolus. Most distal subsegmental branches of bilateral pulmonary arter ies are suboptimally opacified. Prominent size of main pulmonary artery which can be seen associated with pulmonary vascular hypertension. 2. Cardiomegaly, no pericardial effusion. Three-vessel coronary artery atherosclerotic calcifications . Moderate atherosclerotic calcifications in the and thoracic and abdominal aorta. No gross aortic an eurysm. 3. Small bilateral pleural effusion and suggestion of extensive pulmonary edema. No pneumothorax. Air way is patent. 4. Incidentally noted of cholelithiasis without CT evidence of acute cholecystitis. Reviewed by: Prem Ashley MD on 02/20/2024 5:05 PM PDT Approved by: Prem Ashley MD on 02/20/2024 5:05 PM PDT Station ID: [id number]
[2024-02-20] MEDS ORDERED: ONDANSETRON 4 MG/2 ML VIAL IVP PRN (20:31)
[2024-02-20] MEDS ORDERED: SODIUM CHLORIDE FLUSH 0.9% 10 ML SYRINGE IVP PRN (20:31)
--- NOTE | 2024-02-20 20:54 | HISTORY & PHYSICAL EXAMINATION ---
Chief Complaint Chief Complaint Chief Complaint: SOB History of Present Illness History of Present Illness HPI Comment/Other: 83 Y OLD female with PMH HTN, DM 2, CHF presented to ER due to shortness of breath which started today. c/o cough. Denies chest pain, fever, nausea, vomiting, diarrhea, constipation, symptoms As per pt, she saw architectural engineer 2 months ago who stopped torsemide and started bumex 1 mg bid On presentation, pt was hypoxic and put on oxygen BNP > 600 CTA chest showed no evidence of PE. It showed cardiomegaly, pulmonary edema and small b/l pleural effsuion In ER, pt was given lasix 40 mg iv X 1 and diuresed 400 cc Pt is admitted due to Acute hypoxic resp failure due to CHF exacerbation Review of Systems Status of ROS: 10 or more systems reviewed and unremarkable except as noted in history and below PFSH Social History Social History Smoking Status: Current every day smoker Do you dip or chew tobacco?: No Do you vape?: No Living arrangement: Assisted living (move to [facility] and living at [place] just the past 2 weeks. ) Living Condition: Alone Relationship: Home Mobility Equipment: Walker and Wheelchair Do you feel safe in your home environment?: Yes Suffered physical, verbal, emotional, or financial abuse?: No History of Abuse: No Meds/Allgy Home Medications Ambulatory Orders Medication Instructions Recorded Confirmed apixaban 5 mg tablet (Eliquis) 5 mg PO BID 05/24/20 aspirin 81 mg tablet,delayed 81 mg PO DAILY 05/24/20 release ezetimibe 10 mg tablet 10 mg PO QD #30 tabs 05/24/20 glipizide 5 mg tablet 5 mg PO BID #60 tabs 05/24/20 insulin lispro 100 unit/mL 100 unit SQ ACHS #1 vial 05/24/20 subcutaneous solution metoprolol tartrate 25 mg tablet 12.5 mg (1/2 x 25 mg) PO BID 05/24/20 torsemide 10 mg tablet 20 mg (2 x 10 mg) PO DAILY #30 tabs 05/24/20 losartan 25 mg tablet 25 mg PO DAILY 04/08/23 04/08/23 Allergies Allergies Allergy/AdvReac Type Severity Reaction Status Date / Time amoxicillin (From Augmentin) Allergy Hives Verified 02/20/24 13:53 clavulanic acid (From Allergy Hives Verified 02/20/24 13:53 Augmentin) colesevelam Allergy Edema Verified 02/20/24 13:53 Ryinstx-ZFP-PlF Reductase Allergy Edema Verified 02/20/24 13:53 Inhibitor (Hvatwob-Evm-Vlb Reductase Inhibitor) Exam Exam Vital Signs Temperature 36.8 C 02/20/24 18:00 Pulse Rate 68 02/20/24 19:59 Respiratory Rate 19 02/20/24 19:59 Blood Pressure 174/76 H 02/20/24 19:59 O2 Saturation 95 02/20/24 19:59 If not protocol: Oxygen Flow, liters/minute 2 02/20/24 19:59 Constitutional normal general appearance HENMT normocephalic Eyes PERRL Neck/C-Spine visual inspection normal Respiratory breath sounds equal bilaterally Cardiovascular normal heart rate noted Gastrointestinal nontender to palpation Extremities b/l pedal edema Neurology no focal motor deficit noted Conclusion/Plan Problem List (1) Acute exacerbation of CHF (congestive heart failure): Plan: A: Acute hypoxic respiratory failure Acute on chronic CHF exacerbation, unspecified Acute pulmonary edema B/L pleural effusion HTN DM 2 Plan; Admit to med surg with tele Get Echo Start lasix 40 mg iv q12h Metoprolol 25 mg bid Cont losartan 25 mg po qd monitor i/o, electrolytes Start insulin sliding scale DVT prophylaxic: Lovenox sq SCD Full code Pt is admitted as inpatient as more than 2 midnight stay is expected Lab Results 02/20/24 15:18 02/20/24 15:03
[2024-02-20] MEDS: METOPROLOL TARTRATE 25 MG TABLET PO SCH (22:00)
[2024-02-20] MEDS: INSULIN LISPRO 300 UNIT/3 ML PEN SUBQ SCH (22:00)
[2024-02-20] MEDS: FUROSEMIDE 40 MG/4 ML VIAL IVP SCH (22:00)
[2024-02-20] MEDS ORDERED: COD LIVER OIL/ZINC OXIDE 113 GM TUBE TOP PRN (22:30)
[2024-02-20] MEDS ORDERED: WITCH HAZEL/GLYCERIN 1 PAD TOP PRN (22:30)
[2024-02-21] MEDS: SODIUM CHLORIDE FLUSH 0.9% 10 ML SYRINGE IVP SCH (02:42)
[2024-02-21 02:44] LABS: MAGNESIUM 1.9 mg/dL (1.7-2.3)
[2024-02-21 02:50] LABS: CALCIUM 8.5 mg/dL (8.5-10.3); CREATININE 1.1 mg/dL (0.6-1.3); POTASSIUM 3.6 mmol/L (3.5-4.5)
[2024-02-21] MEDS: FUROSEMIDE 20 MG TABLET PO SCH (08:52)
[2024-02-21] MEDS: ENOXAPARIN 40 MG/0.4 ML SYRINGE SUBQ SCH (08:57)
[2024-02-21] MEDS: LOSARTAN 50 MG TABLET PO SCH (08:59)
[2024-02-21] MEDS: polyethylene glycoL 3350 17 GM PACKET PO SCH (09:00)
[2024-02-21] MEDS: INSULIN LISPRO 300 UNIT/3 ML PEN SUBQ SCH ×3 (12:32→21:00)
--- NOTE | 2024-02-21 13:02 | PROVIDER PROGRESS NOTE ---
Subjective Prog Note Date Prog Note Date: 02/21/24 Prog Note Time: 13:00 Subjective Pt reports feeling: Improved Subjective: 83 Y OLD female with PMH HTN, DM 2, CHF presented to ER due to shortness of breath which started today. c/o cough. Denies chest pain, fever, nausea, vomiting, diarrhea, constipation, symptoms As per pt, she saw vp project 2 months ago who stopped torsemide and started bumex 1 mg bid On presentation, pt was hypoxic and put on oxygen BNP > 600 CTA chest showed no evidence of PE. It showed cardiomegaly, pulmonary edema and small b/l pleural effsuion In ER, pt was given lasix 40 mg iv X 1 and diuresed 400 cc Pt is admitted due to Acute hypoxic resp failure due to CHF exacerbation 02/21/2024: Patient states that she is breathing much better, she feels that her respiratory issues have resolved. Last echo in August 26 indicated 55% EF. With a moderate pulmonary hypertension. Current Medications Current Medications Current Medications: Current Medications Generic Name Dose Route Start Last Admin Trade Name Freq PRN Reason Stop Dose Admin Enoxaparin Sodium 40 mg 02/21/24 09:00 02/21/24 08:57 Enoxaparin 40 Mg/0.4 Ml Syringe SUBQ 40 mg DAILY DORIAN Administration Furosemide 60 mg 02/21/24 08:00 02/21/24 08:52 Furosemide 20 Mg Tablet PO 60 mg BIDDIURETIC DORIAN Administration Losartan Potassium 25 mg 02/21/24 09:00 02/21/24 11:10 Losartan 50 Mg Tablet PO 25 mg DAILY DORIAN Administration Metoprolol Tartrate 25 mg 02/20/24 21:00 02/21/24 08:59 Metoprolol Tartrate 25 Mg Tablet PO Not Given BID DORIAN Multi-Ingredient Ointment 1 applic 02/20/24 22:30 Zinc Oxide 20% Oint 30 Gm Tube TOP PRN PRN Skin Care Ondansetron HCl 4 mg 02/20/24 20:31 Ondansetron 4 Mg/2 Ml Vial IVP Q6HR PRN Nausea / Vomiting Polyethylene Glycol 17 gm 02/21/24 09:00 02/21/24 09:00 Polyethylene Glycol 3350 17 Gm Packet PO 17 gm DAILY DORIAN Administration Sodium Chloride 10 ml 02/20/24 20:31 Sodium Chloride Flush 0.9% 10 Ml Syringe IVP PRN PRN NEEDED PER PROVIDER ORDERS Sodium Chloride 10 ml 02/21/24 01:00 02/21/24 09:01 Sodium Chloride Flush 0.9% 10 Ml Syringe IVP 10 ml 0100,0900,1700 DORIAN Administration Witch Lety/Glycerin 1 pad 02/20/24 22:30 Witch Lety/Glycerin 1 Pad TOP PRN PRN ITCHING Zinc Oxide 113 gm 02/20/24 22:30 Cod Liver Oil/Zinc Oxide 113 Gm Tube TOP PRN PRN Skin Care Objective Vital Signs/Intake & Output Vital Signs: Vital Signs x48h Temp Pulse Pulse Resp BP BP Pulse Ox 02/21/24 08:59 51 L 98/41 L 02/21/24 07:39 36.6 C 54 L 16 109/44 L 97 02/21/24 05:30 36.6 C 44 L 14 108/46 L 98 O2 Flow Rate 02/21/24 08:59 02/21/24 07:39 2 02/21/24 05:30 2 Intake & Output: Intake & Output 02/19/24 02/20/24 02/21/24 02/22/24 05:59 05:59 05:59 05:59 Intake Total 562 / 562 420 / 420 Balance 562 / 562 420 / 420 Weight (kg) 101.5 kg Objective General Appearance: positive No acute distress and Alert ENT: positive ENT inspection nml and Pharynx nml Neck: positive Nml inspection and Trachea midline Respiratory: positive Chest non-tender and No respiratory distress Cardiovascular: positive No murmur, No gallop and Bradycardia Abdomen: positive Non-tender, No organomegaly and No distention Skin: positive Color nml, No rash and Dry Extremities: positive Non-tender and Other (Bilateral edema) Neurologic/Psychiatric: positive Oriented x3 and CN's nml (2-12) Lab Results 02/20/24 15:18 02/21/24 02:14 Other Labs: Lab Results x24hrs 02/21/24 02/21/24 02/21/24 Range/Units 11:13 07:31 02:14 WBC (4.8-10.8) x10^3/uL RBC (4.20-5.40) 10^6/uL Hgb (12.0-16.0) g/dL Hct (37.0-47.0) % MCV (81.0-99.0) fL MCH (27.0-31.0) pg MCHC (32.0-36.0) g/dL RDW (12.0-15.0) % Plt Count (130-450) 10^3/uL MPV (7.9-10.8) fL Neut # (Auto) (1.5-6.6) 10^3/uL Lymph # (Auto) (1.5-3.5) 10^3/uL [place] # (Auto) (0.0-1.0) 10^3/uL Eos # (Auto) (0.0-0.7) 10^3/uL Baso # (Auto) (0.0-0.1) 10^3/uL Absolute Nucleated RBC x10^3/uL Nucleated RBC % /100WBC Sodium 135 (135-145) mmol/L Potassium 3.6 (3.5-4.5) mmol/L Chloride 100 L (101-111) mmol/L Carbon Dioxide 25 (21-32) mmol/L Anion Gap 10.0 (6-13) BUN 27 H (6-20) mg/dL Creatinine 1.1 (0.6-1.3) mg/dL Estimated GFR (MDRD) 47 L (>89) Glucose 257 H (74-104) mg/dL POC Whole Bld Glucose 202 185 (70-100) mg/dL Calcium 8.5 (8.5-10.3) mg/dL Magnesium 1.9 (1.7-2.3) mg/dL Total Bilirubin (0.2-1.0) mg/dL AST (10-42) IU/L ALT (10-60) IU/L Alkaline Phosphatase (42-121) IU/L B-Natriuretic Peptide Total Protein (6.4-8.9) g/dL Albumin (3.2-5.5) g/dL Globulin (2.1-4.2) g/dL Albumin/Globulin Ratio (1.0-2.2) 02/20/24 02/20/24 02/20/24 Range/Units 21:52 15:18 15:03 WBC 9.1 (4.8-10.8) x10^3/uL RBC 4.59 (4.20-5.40) 10^6/uL Hgb 12.0 (12.0-16.0) g/dL Hct 39.1 (37.0-47.0) % MCV 85.2 (81.0-99.0) fL MCH 26.1 L (27.0-31.0) pg MCHC 30.7 L (32.0-36.0) g/dL RDW 15.9 H (12.0-15.0) % Plt Count 267 (130-450) 10^3/uL MPV 9.5 (7.9-10.8) fL Neut # (Auto) 7.4 H (1.5-6.6) 10^3/uL Lymph # (Auto) 0.7 L (1.5-3.5) 10^3/uL [place] # (Auto) 0.5 (0.0-1.0) 10^3/uL Eos # (Auto) 0.3 (0.0-0.7) 10^3/uL Baso # (Auto) 0.1 (0.0-0.1) 10^3/uL Absolute Nucleated RBC 0.00 x10^3/uL Nucleated RBC % 0.0 /100WBC Sodium 135 (135-145) mmol/L Potassium 3.6 (3.5-4.5) mmol/L Chloride 99 L (101-111) mmol/L Carbon Dioxide 26 (21-32) mmol/L Anion Gap 10.0 (6-13) BUN 30 H (6-20) mg/dL Creatinine 1.2 (0.6-1.3) mg/dL Estimated GFR (MDRD) 43 L (>89) Glucose 265 H (74-104) mg/dL POC Whole Bld Glucose 188 (70-100) mg/dL Calcium 9.0 (8.5-10.3) mg/dL Magnesium 2.2 (1.7-2.3) mg/dL Total Bilirubin 0.9 (0.2-1.0) mg/dL AST 17 (10-42) IU/L ALT 6 L (10-60) IU/L Alkaline Phosphatase 79 (42-121) IU/L B-Natriuretic Peptide 602 H Cancelled Total Protein 7.2 (6.4-8.9) g/dL Albumin 3.7 (3.2-5.5) g/dL Globulin 3.5 (2.1-4.2) g/dL Albumin/Globulin Ratio 1.1 (1.0-2.2) Diagnostic Imaging Diagnostic Imaging Results: positive Final report reviewed Assessment/Plan Problem List (1) Acute exacerbation of CHF (congestive heart failure): Impression: Patient on Bumex from home, States that it does Not work Patient was started on IV Lasix 40 overnight with good diuresis. Patient respiratory status has improved. No crackles no rails. On admission patient had a BNP of 300 Start patient on Lasix p.o., monitor I's and O's. Follow echo for acute exacerbation of heart failure. (2) Bradycardia: Impression: Patient had episodes of bradycardia Overnight into the low 30s. She remained asymptomatic. EKG indicates rate of 42 with atrial fibrillation. Patient is on metoprolol 25 twice daily. Continue Lopressor with holding parameters, Follow echo.
[2024-02-21 13:54] LABS: ESTIMATED AVERAGE GLUCOSE 146 mg/dL (70-100); HEMOGLOBIN A1c% 6.7 % (4.27-6.07)
--- NOTE | 2024-02-21 14:26 | PHARMACY PROGRESS NOTE ---
Best Possible Medication History Admit Date and Time: 02/20/24 [facility] Statement: As the person ultimately responsible for medication therapy, providers are able to order a medication from an existing home medication list in [facility] via the "Reconcile Routine" prior to Confirmation of that medication by senior support analyst. Such practice is discouraged except when the physician, in their clinical judgment, deems that a medical need exists for a medication without regard to previous use.
[2024-02-21] MEDS ORDERED: INSULIN LISPRO 300 UNIT/3 ML PEN SUBQ SCH (17:00)
[2024-02-22 05:26] LABS: BASOPHILS # (AUTO) 0.1 10^3/uL (0.0-0.1); BASOPHILS % (AUTO) 0.6 %; EOSINOPHILS # (AUTO) 0.5 10^3/uL (0.0-0.7); EOSINOPHILS % (AUTO) 6.2 %; HCT - HEMATOCRIT 32.2 % (37.0-47.0); HGB - HEMOGLOBIN 10.1 g/dL (12.0-16.0); LYMPHOCYTES % (AUTO) 12.8 %; MEAN CORPUSCULAR HEMOGLOBIN 26.2 pg (27.0-31.0); MEAN CORPUSCULAR HGB CONC 31.4 g/dL (32.0-36.0); MEAN CORPUSCULAR VOLUME 83.4 fL (81.0-99.0); MEAN PLATELET VOLUME 9.5 fL (7.9-10.8); MONOCYTES # (AUTO) 0.8 10^3/uL (0.0-1.0); MONOCYTES % (AUTO) 10.1 %; NEUTROPHILS # (AUTO) 5.7 10^3/uL (1.5-6.6); NEUTROPHILS % (AUTO) 70.1 %; PLT - PLATELET COUNT 234 10^3/uL (130-450); RED BLOOD COUNT 3.86 10^6/uL (4.20-5.40); RED CELL DISTRIBUTION WIDTH 15.7 % (12.0-15.0); WHITE BLOOD COUNT 8.1 x10^3/uL (4.8-10.8)
[2024-02-22 05:41] LABS: CALCIUM 8.6 mg/dL (8.5-10.3); CREATININE 1.2 mg/dL (0.6-1.3); POTASSIUM 3.5 mmol/L (3.5-4.5)
[2024-02-22] MEDS: ZINC OXIDE 20% OINT 30 GM TUBE TOP PRN (06:33)
[2024-02-22] MEDS: POTASSIUM CHLOR 10 MEQ/100 ML 10 MEQ/100 ML BAG IV SCH (07:09)
--- NOTE | 2024-02-22 12:29 | PROVIDER PROGRESS NOTE ---
Subjective Prog Note Date Prog Note Date: 02/22/24 Prog Note Time: 12:27 Subjective Pt reports feeling: Improved Subjective: 83 Y OLD female with PMH HTN, DM 2, CHF presented to ER due to shortness of breath which started today. c/o cough. Denies chest pain, fever, nausea, vomiting, diarrhea, constipation, symptoms As per pt, she saw locker plant attendant 2 months ago who stopped torsemide and started bumex 1 mg bid On presentation, pt was hypoxic and put on oxygen BNP > 600 CTA chest showed no evidence of PE. It showed cardiomegaly, pulmonary edema and small b/l pleural effsuion In ER, pt was given lasix 40 mg iv X 1 and diuresed 400 cc Pt is admitted due to Acute hypoxic resp failure due to CHF exacerbation 02/21/2024: Patient states that she is breathing much better, she feels that her respiratory issues have resolved. Last echo in August 26 indicated 55% EF. With a moderate pulmonary hypertension. 02/22/2024: Patient has no complaints. Respiratory status at baseline. Patient again had episodes of asymptomatic bradycardia/A-fib and heart rate pauses up to 4 seconds. Current Medications Current Medications Current Medications: Current Medications Generic Name Dose Route Start Last Admin Trade Name Freq PRN Reason Stop Dose Admin Enoxaparin Sodium 40 mg 02/21/24 09:00 02/22/24 08:09 Enoxaparin 40 Mg/0.4 Ml Syringe SUBQ 40 mg DAILY DORIAN Administration Furosemide 60 mg 02/21/24 08:00 02/22/24 06:33 Furosemide 20 Mg Tablet PO 60 mg BIDDIURETIC DORIAN Administration Insulin Human Lispro 2 - 10 unit 02/21/24 21:00 02/22/24 11:56 Insulin Lispro 300 Unit/3 Ml Pen SUBQ 4 unit 0800,1200,1700,2100 DORIAN Administration Protocol Losartan Potassium 25 mg 02/21/24 09:00 02/22/24 08:09 Losartan 50 Mg Tablet PO 25 mg DAILY DORIAN Administration Metoprolol Tartrate 25 mg 02/20/24 21:00 02/22/24 09:48 Metoprolol Tartrate 25 Mg Tablet PO Not Given BID DORIAN Multi-Ingredient Ointment 1 applic 02/20/24 22:30 02/22/24 08:08 Zinc Oxide 20% Oint 30 Gm Tube TOP 1 applic PRN PRN Administration Skin Care Ondansetron HCl 4 mg 02/20/24 20:31 Ondansetron 4 Mg/2 Ml Vial IVP Q6HR PRN Nausea / Vomiting Polyethylene Glycol 17 gm 02/21/24 09:00 02/22/24 08:08 Polyethylene Glycol 3350 17 Gm Packet PO 17 gm DAILY DORIAN Administration Sodium Chloride 10 ml 02/20/24 20:31 Sodium Chloride Flush 0.9% 10 Ml Syringe IVP PRN PRN NEEDED PER PROVIDER ORDERS Sodium Chloride 10 ml 02/21/24 01:00 02/22/24 08:08 Sodium Chloride Flush 0.9% 10 Ml Syringe IVP 10 ml 0100,0900,1700 DORIAN Administration Witch Lety/Glycerin 1 pad 02/20/24 22:30 Witch Lety/Glycerin 1 Pad TOP PRN PRN ITCHING Zinc Oxide 113 gm 02/20/24 22:30 Cod Liver Oil/Zinc Oxide 113 Gm Tube TOP PRN PRN Skin Care Objective Vital Signs/Intake & Output Vital Signs: Vital Signs x48h Temp Pulse Pulse Pulse Resp BP BP 02/22/24 09:48 53 L 148/46 H 02/22/24 07:33 36.5 C 53 L 24 148/46 H 02/22/24 05:30 36.5 C 50 L 16 135/65 H Pulse Ox O2 Flow Rate 02/22/24 09:48 02/22/24 07:33 96 2 02/22/24 05:30 98 2 Intake & Output: Intake & Output 02/20/24 02/21/24 02/22/24 02/23/24 05:59 05:59 05:59 05:59 Intake Total 562 / 562 1300 / 1300 465 / 465 Output Total 550 / 550 Balance 562 / 562 750 / 750 465 / 465 Weight (kg) 101.5 kg Objective General Appearance: positive No acute distress and Alert ENT: positive ENT inspection nml and Pharynx nml Neck: positive Nml inspection and Trachea midline Respiratory: positive Chest non-tender and No respiratory distress Cardiovascular: positive No murmur, No gallop and Bradycardia Abdomen: positive Non-tender, No organomegaly and No distention Skin: positive Color nml, No rash and Dry Extremities: positive Non-tender and Other (Bilateral edema) Neurologic/Psychiatric: positive Oriented x3 and CN's nml (2-12) Lab Results 02/22/24 05:00 02/22/24 05:00 Other Labs: Lab Results x24hrs 02/22/24 02/22/24 02/22/24 Range/Units 11:18 07:28 05:35 WBC (4.8-10.8) x10^3/uL RBC (4.20-5.40) 10^6/uL Hgb (12.0-16.0) g/dL Hct (37.0-47.0) % MCV (81.0-99.0) fL MCH (27.0-31.0) pg MCHC (32.0-36.0) g/dL RDW (12.0-15.0) % Plt Count (130-450) 10^3/uL MPV (7.9-10.8) fL Neut # (Auto) (1.5-6.6) 10^3/uL Lymph # (Auto) (1.5-3.5) 10^3/uL [place] # (Auto) (0.0-1.0) 10^3/uL Eos # (Auto) (0.0-0.7) 10^3/uL Baso # (Auto) (0.0-0.1) 10^3/uL Absolute Nucleated RBC x10^3/uL Nucleated RBC % /100WBC Sodium (135-145) mmol/L Potassium (3.5-4.5) mmol/L Chloride (101-111) mmol/L Carbon Dioxide (21-32) mmol/L Anion Gap (6-13) BUN (6-20) mg/dL Creatinine (0.6-1.3) mg/dL Estimated GFR (MDRD) (>89) Glucose (74-104) mg/dL POC Whole Bld Glucose 272 161 129 (70-100) mg/dL Estimat Average Glucose (70-100) mg/dL Hemoglobin A1c % (4.27-6.07) % Calcium (8.5-10.3) mg/dL Magnesium (1.7-2.3) mg/dL B-Natriuretic Peptide (5-100) pg/mL 02/22/24 02/22/24 02/21/24 Range/Units 05:00 02:38 20:29 WBC 8.1 (4.8-10.8) x10^3/uL RBC 3.86 L (4.20-5.40) 10^6/uL Hgb 10.1 L (12.0-16.0) g/dL Hct 32.2 L (37.0-47.0) % MCV 83.4 (81.0-99.0) fL MCH 26.2 L (27.0-31.0) pg MCHC 31.4 L (32.0-36.0) g/dL RDW 15.7 H (12.0-15.0) % Plt Count 234 (130-450) 10^3/uL MPV 9.5 (7.9-10.8) fL Neut # (Auto) 5.7 (1.5-6.6) 10^3/uL Lymph # (Auto) 1.0 L (1.5-3.5) 10^3/uL [place] # (Auto) 0.8 (0.0-1.0) 10^3/uL Eos # (Auto) 0.5 (0.0-0.7) 10^3/uL Baso # (Auto) 0.1 (0.0-0.1) 10^3/uL Absolute Nucleated RBC 0.00 x10^3/uL Nucleated RBC % 0.0 /100WBC Sodium 133 L (135-145) mmol/L Potassium 3.5 (3.5-4.5) mmol/L Chloride 97 L (101-111) mmol/L Carbon Dioxide 28 (21-32) mmol/L Anion Gap 8.0 (6-13) BUN 37 H (6-20) mg/dL Creatinine 1.2 (0.6-1.3) mg/dL Estimated GFR (MDRD) 43 L (>89) Glucose 129 H (74-104) mg/dL POC Whole Bld Glucose 101 247 (70-100) mg/dL Estimat Average Glucose (70-100) mg/dL Hemoglobin A1c % (4.27-6.07) % Calcium 8.6 (8.5-10.3) mg/dL Magnesium 2.1 (1.7-2.3) mg/dL B-Natriuretic Peptide 615 H (5-100) pg/mL 02/21/24 02/21/24 Range/Units 16:46 13:18 WBC (4.8-10.8) x10^3/uL RBC (4.20-5.40) 10^6/uL Hgb (12.0-16.0) g/dL Hct (37.0-47.0) % MCV (81.0-99.0) fL MCH (27.0-31.0) pg MCHC (32.0-36.0) g/dL RDW (12.0-15.0) % Plt Count (130-450) 10^3/uL MPV (7.9-10.8) fL Neut # (Auto) (1.5-6.6) 10^3/uL Lymph # (Auto) (1.5-3.5) 10^3/uL [place] # (Auto) (0.0-1.0) 10^3/uL Eos # (Auto) (0.0-0.7) 10^3/uL Baso # (Auto) (0.0-0.1) 10^3/uL Absolute Nucleated RBC x10^3/uL Nucleated RBC % /100WBC Sodium (135-145) mmol/L Potassium (3.5-4.5) mmol/L Chloride (101-111) mmol/L Carbon Dioxide (21-32) mmol/L Anion Gap (6-13) BUN (6-20) mg/dL Creatinine (0.6-1.3) mg/dL Estimated GFR (MDRD) (>89) Glucose (74-104) mg/dL POC Whole Bld Glucose 209 (70-100) mg/dL Estimat Average Glucose 146 H (70-100) mg/dL Hemoglobin A1c % 6.7 H (4.27-6.07) % Calcium (8.5-10.3) mg/dL Magnesium (1.7-2.3) mg/dL B-Natriuretic Peptide (5-100) pg/mL Diagnostic Imaging Diagnostic Imaging Results: positive Final report reviewed Assessment/Plan Problem List (1) Acute exacerbation of CHF (congestive heart failure): Impression: Patient on Bumex from home, States that it does Not work Patient Patient now on 60 of Lasix twice daily. With good diuresis. Patient's urine output is about 0.5 mL/kg/h. Continue current Lasix regimen. Patient respiratory status has improved. No crackles no rails. monitor Strict I's and O's. Follow echo for acute exacerbation of heart failure. (2) Bradycardia: Impression: Patient Again had episodes of bradycardia, Bradycardic A-fib Overnight into the low 30s. Patient has paroxysmal A-fib not on anticoagulation but on Lopressor. She remained asymptomatic During episodes Patient also had Three 3-second pauses during the nighttime While asleep. Of note patient has sleep apnea. I reached out to patient's locker plant attendant Dr. Corbett At the [facility]. I talked To locker plant attendant on-call, who recommended continue to monitor. At this time she is on a candidate for a pacemaker. I Reached out to the [facility] cardiology, awaiting callback. [facility] cardiology agrees with patient's locker plant attendant. Recommendation to follow-up soon after discharge. Discontinue metoprolol, Placed pads on patient, Follow echo.
[2024-02-22] MEDS: INSULIN LISPRO 300 UNIT/3 ML PEN SUBQ SCH (20:35)
[2024-02-23 05:49] LABS: BASOPHILS # (AUTO) 0.1 10^3/uL (0.0-0.1); BASOPHILS % (AUTO) 0.7 %; EOSINOPHILS # (AUTO) 0.6 10^3/uL (0.0-0.7); EOSINOPHILS % (AUTO) 7.1 %; HCT - HEMATOCRIT 36.3 % (37.0-47.0); HGB - HEMOGLOBIN 10.8 g/dL (12.0-16.0); LYMPHOCYTES # (AUTO) 0.9 10^3/uL (1.5-3.5); LYMPHOCYTES % (AUTO) 11.6 %; MEAN CORPUSCULAR HEMOGLOBIN 25.2 pg (27.0-31.0); MEAN CORPUSCULAR HGB CONC 29.8 g/dL (32.0-36.0); MEAN CORPUSCULAR VOLUME 84.8 fL (81.0-99.0); MEAN PLATELET VOLUME 9.4 fL (7.9-10.8); MONOCYTES # (AUTO) 0.8 10^3/uL (0.0-1.0); MONOCYTES % (AUTO) 9.6 %; NEUTROPHILS # (AUTO) 5.7 10^3/uL (1.5-6.6); NEUTROPHILS % (AUTO) 70.8 %; PLT - PLATELET COUNT 256 10^3/uL (130-450); RED BLOOD COUNT 4.28 10^6/uL (4.20-5.40); RED CELL DISTRIBUTION WIDTH 15.6 % (12.0-15.0); WHITE BLOOD COUNT 8.1 x10^3/uL (4.8-10.8)
[2024-02-23 06:06] LABS: CALCIUM 9.1 mg/dL (8.5-10.3); CREATININE 1.1 mg/dL (0.6-1.3); POTASSIUM 3.8 mmol/L (3.5-4.5)
[2024-02-23] MEDS: DOCUSATE SODIUM 250 MG CAPSULE PO SCH (08:21)
[2024-02-23] MEDS: SENNA 8.6 MG TABLET PO SCH (08:21)
[2024-02-23 13:01] VITALS: O2SAT 95
--- NOTE | 2024-02-23 13:16 | Discharge Summary ---
Discharge Summary Admit Date: 02/20/24 Discharge Date: 02/23/24 Discharging Provider: korb Code Status: Attempt Resuscitation DIAGNOSES Admission Diagnoses: Acute CHF exacerbation Paroxysmal atrial fibrillation Asymptomatic bradycardia with pauses Discharge Diagnoses with Status of Each Condition: Acute CHF exacerbation - resolved Paroxysmal atrial fibrillation - on Eliquis Bradycardia with pauses - consult with cardiology HPI History of Present Illness: 83 Y OLD female with PMH HTN, DM 2, CHF presented to ER due to shortness of breath which started today. c/o cough. Denies chest pain, fever, nausea, vomiting, diarrhea, constipation, symptoms As per pt, she saw welfare supervisor 2 months ago who stopped torsemide and started bumex 1 mg bid On presentation, pt was hypoxic and put on oxygen BNP > 600 CTA chest showed no evidence of PE. It showed cardiomegaly, pulmonary edema and small b/l pleural effsuion In ER, pt was given lasix 40 mg iv X 1 and diuresed 400 cc Pt is admitted due to Acute hypoxic resp failure due to CHF exacerbation 02/21/2024: Patient states that she is breathing much better, she feels that her respiratory issues have resolved. Last echo in August 26 indicated 55% EF. With a moderate pulmonary hypertension. 02/22/2024: Patient has no complaints. Respiratory status at baseline. Patient again had episodes of asymptomatic bradycardia/A-fib and heart rate pauses up to 4 seconds. HOSPITAL COURSE Hospital Course: On admission, pt experienced respiratory distress due to CHF exacerbation with pulm edema on chest x-ray. Patient was given IV Lasix in the ER. Patient was continued on 60 mg of Lasix p.o. twice daily and with good urine output.This was deescalated to 40mg po bid lasix upon discharge. Bumex and torsemide were discontinued. Upon discharge patient lungs were clear, no rales or rhonchi. Patient was not in any respiratory distress Patient experienced a few episodes of bradycardia into the low 30s and some heart rate pauses during sleep which lasted about 3 seconds. Patient had been on metoprolol which was discontinued. I reached out to her welfare supervisor [facility] Cardiology recommended to monitor at this time, she is not a candidate for pacemaker. Echo read is pending Patient experienced some urinary retention during the hospital stay. She retained over 600 mL of urine. She was straight cathed. She will need to follow-up with urologist as an outpatient. ALLERGIES Allergies Allergy/AdvReac Type Severity Reaction Status Date / Time amoxicillin (From Augmentin) Allergy Hives Verified 02/20/24 13:53 clavulanic acid (From Allergy Hives Verified 02/20/24 13:53 Augmentin) colesevelam Allergy Edema Verified 02/20/24 13:53 Bfrosns-YOY-GpP Reductase Allergy Edema Verified 02/20/24 13:53 Inhibitor (Yknisjk-Nio-Gkm Reductase Inhibitor) MEDICATIONS Ambulatory Orders Medication Instructions Recorded Confirmed apixaban 5 mg tablet (Eliquis) 5 mg PO BID 05/24/20 02/21/24 aspirin 81 mg tablet,delayed 81 mg PO DAILY 05/24/20 02/21/24 release ezetimibe 10 mg tablet 10 mg PO QD #30 tabs 05/24/20 02/21/24 glipizide 5 mg tablet 5 mg PO BID #60 tabs 05/24/20 02/21/24 losartan 25 mg tablet 25 mg PO DAILY 04/08/23 02/21/24 empagliflozin 10 mg tablet 10 mg PO DAILY 02/21/24 02/21/24 (Jardiance) insulin lispro 100 unit/mL 12 - 16 unit subcut ACHS 02/21/24 02/21/24 subcutaneous solution furosemide 40 mg tablet 40 mg PO BIDDIURETIC #180 tabs 02/23/24 PHYSICAL EXAM AT DISCHARGE General Appearance: positive No acute distress and Alert Eyes Bilateral: positive Normal inspection and PERRL ENT: positive ENT inspection nml and Purulent nasal drainage Respiratory: positive Chest non-tender and No respiratory distress Cardiovascular: positive Regular rate & rhythm, No murmur and No gallop Abdomen: positive Non-tender, No organomegaly and No distention Skin: positive Color nml, No rash and Warm Extremities: positive Non-tender and Full ROM Neurologic/Psychiatric: positive Oriented x3 and CN's nml (2-12) LABS 02/23/24 05:21 02/23/24 05:21 DIAGNOSTIC IMAGING Diagnostic Imaging Results: Final report reviewed QUALITY (Female Hip Fx Only) Was patient sent home on osteoporosis medication?: No FOLLOW UP Follow Up: cardiology urology TIME SPENT Time Spent in Discharge (Minutes): 35 Discharge Plan Discharge Patient Disposition: Home, Self Care Condition: Stable Medically Cleared Date:: 02/23/24 Prescriptions: New furosemide 40 mg Tablet 40 mg PO BIDDIURETIC Qty: 180 4RF Continued aspirin 81 MG tablet,delayed release (DR/EC) 81 mg PO DAILY 0RF Eliquis 5 MG tablet 5 mg PO BID 0RF glipizide 5 MG tablet 5 mg PO BID Qty: 60 0RF ezetimibe 10 MG tablet 10 mg PO QD Qty: 30 0RF losartan 25 MG tablet 25 mg PO DAILY Jardiance 10 mg tablet 10 mg PO DAILY Patient Comments: New medication, just started recently insulin lispro 100 UNIT/ML solution 12 - 16 unit subcut ACHS Patient Comments: Patient states that she administers 3 times daily, at 7am, 12pm, and 7pm according to sliding scale. Rx Instructions: Injected SQ per sliding scale. Blood sugar 122-150=10 units, 150-200=12 units, 201-250=14 units, greater than 250=16 units. Discontinued torsemide 10 MG tablet 20 mg PO DAILY Qty: 30 0RF bumetanide 1 mg tablet 1 mg PO BID metoprolol succinate 25 mg tablet extended release 24 hr 25 mg PO ONCE Activity Restrictions: Activity as Tolerated Diet: Low Sodium Plan of Treatment: Resume Lasix 40 mg twice daily Stop Bumex Stop torsemide Stop metoprolol Follow-up with [facility] for asymptomatic bradycardia Follow-up with your urologist for urinary retention Print Language: [place] Citizen Patient Instructions: Heart Failure Congestive Ch, Bradycardia Stand Alone Forms: PCP List Follow-up Care: Deanna Gonzales ARNP [Primary Care Provider] -
[2024-02-23] MEDS: FUROSEMIDE 40 MG TABLET PO SCH (16:01)
== END 2024-02-23 14:50 | disposition home or self-care (01) | DRG 189 ==
LOC: ED 13:46 → MS2 20:40
PROVIDERS: ADMIT Internal Medicine; ATTEND Internal Medicine
DX: I48.0 Paroxysmal atrial fibrillation; I70.0 Atherosclerosis of aorta; I50.9 Heart failure, unspecified; F17.200 Nicotine dependence, unspecified, uncomplicated; I25.10 Atherosclerotic heart disease of native coronary artery without angina pectoris; Z79.4 Long term (current) use of insulin; I11.0 Hypertensive heart disease with heart failure; R00.1 Bradycardia, unspecified; J96.01 Acute respiratory failure with hypoxia; Z79.01 Long term (current) use of anticoagulants; R33.9 Retention of urine, unspecified; Z79.84 Long term (current) use of oral hypoglycemic drugs; E11.9 Type 2 diabetes mellitus without complications